=== PATIENT | female | born 2000 | race African-American/Black ===

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

== ENCOUNTER 2018-03-11 23:22 | Emergency (ER) | payer SELFPAY ==
[2018-03-12] MEDS ORDERED: DIPHENHYDRAMINE HCL 50 MG/ML VIAL IM ONE (01:18)
[2018-03-12] MEDS ORDERED: METOCLOPRAMIDE HCL INJ/PF 10 MG/2 ML SDV IM ONE (01:18)
--- NOTE | 2018-03-12 01:20 | ER Document Report ---
ED General - General Chief Complaint: Headache Stated Complaint: EXTREME HEADACHES Time Seen by Provider: 03/12/18 01:13 Notes: Patient is a 17-year-old female who presents with complaint of headache. Headache starts in the front part of her head and goes down her face. She says she has a history of migraines and always over the front part of her head. She said that this headache is slowly worsened over the last several hours and this started to involve her face and causing pain going down to her face. She denies any weakness or numbness in any of her extremities. No fevers. No vomiting. She states she took Tylenol Excedrin at home which did not resolve her headache and therefore she came to the ER. She does have a history of recurrent headaches. Last time she was seen here she was referred to a neurologist. She has not yet seen the neurologist. No recent fevers or infections. No vomiting. No other complaints at this time. TRAVEL OUTSIDE OF THE [place] IN LAST 30 DAYS: No - Related Data Allergies/Adverse Reactions: ibuprofen Allergy (Verified 12/03/17 08:02) Past Medical History - Social History Smoking Status: Unknown if Ever Smoked Frequency of alcohol use: None Drug Abuse: None Family History: None, DM Patient has suicidal ideation: No Patient has homicidal ideation: No - Past Medical History Cardiac Medical History: Denies: Hx Coronary Artery Disease, Hx Hypertension Pulmonary Medical History: Denies: Hx Asthma Endocrine Medical History: Denies: Hx Diabetes Mellitus Type 1, Hx Diabetes Mellitus Type 2 Renal/ Medical History: Denies: Hx Peritoneal Dialysis Psychiatric Medical History: Reports: Hx Attention Deficit Hyperactivity Disorder - ODD, Hx Bipolar Disorder Past Surgical History: Reports: Hx Gynecologic Surgery - -jul 2017 - Immunizations Immunizations up to date: Yes Hx Diphtheria, Pertussis, Tetanus Vaccination: No Review of Systems - Review of Systems Notes: My Normal Review Basic REVIEW OF SYSTEMS: CONSTITUTIONAL : Denies fever, chills, or sweats. Denies recent illness. EENT: Denies eye, ear, throat, or mouth pain or symptoms. Denies nasal or sinus congestion. RESPIRATORY: Denies cough, cold, or chest congestion. Denies shortness of breath, difficulty breathing, or wheezing. GASTROINTESTINAL: Denies abdominal pain. Denies nausea, vomiting, or diarrhea. Denies constipation. Last BM: MUSCULOSKELETAL: Denies neck or back pain or joint pain or swelling. SKIN: Denies rash or skin lesions.. NEUROLOGICAL: Denies altered mental status or loss of consciousness. Has a headache. Denies weakness or paralysis or loss of use of either side. Denies problems with gait or speech. Denies sensory or motor loss. ALL OTHER SYSTEMS REVIEWED AND NEGATIVE. Physical Exam - Vital signs Vitals: Temp Pulse Resp BP Pulse Ox 98.0 F 63 16 130/79 H 100 03/11/18 23:51 03/11/18 23:51 03/11/18 23:51 03/11/18 23:51 03/11/18 23:51 - Notes Notes: General Appearance: Well nourished, alert, cooperative, no acute distress, no obvious discomfort. Is comfortable appearing. Vitals: reviewed, See vital signs table. Head: no swelling or tenderness to the head Eyes: PERRL, EOMI, Conjuctiva clear Mouth: No decreasd moisture Throat: No tonsillar inflammation, No airway obstruction, No lymphadenopathy Lungs: No wheezing, No rales, No rhonci, No accessory muscle use, good air exchange bilaterally. Heart: Normal rate, Regular rythm, No murmur, no rub Abdomen: Normal BS, soft, No rigidity, No abdominal tenderness, No guarding, no rebound, no abdominal masses, no organomegaly Extremities: strength 5/5 in all extremities, good pulses in all extremities, no swelling or tenderness in the extremities, no edema. Skin: warm, dry, appropriate color, no rash Neuro: speech clear, oriented x 3, normal affect, responds appropriately to questions. Cranial nerves II through XII are intact. Distal sensation intact. Patient moves all extremities without difficulty. Normal gait. Normal Romberg. Course - Re-evaluation Re-evalutation: 03/12/18 02:42 Patient's headache is resolved. She looks well. I do not suspect subarachnoid hemorrhage the headache is gradual onset over several hours she has had similar headaches in the past. I did talked her length of follow-up with neurologist. I will refer her to neurology again. I encouraged her return to ER if she has worsening headaches, fevers, or feels unwell. Patient agrees with plan will be discharged home. Dictation of this chart was performed using voice recognition software; therefore, there may be some unintended grammatical errors. - Vital Signs Vital signs: Temp Pulse Resp BP Pulse Ox 98.0 F 63 16 130/79 H 100 03/11/18 23:51 03/11/18 23:51 03/11/18 23:51 03/11/18 23:51 03/11/18 23:51 Discharge - Discharge Clinical Impression: Headache Qualifiers: Headache type: unspecified Headache chronicity pattern: acute headache Intractability: not intractable Qualified Code(s): R51 - Headache Condition: Good Disposition: HOME, SELF-CARE Additional Instructions: Please try and follow up with the neurologist, Dr. Pitts. Please return to the ER if you have intractable headaches, fevers, vomiting, or feel unwell. I have prescribed you Reglan. You can take a tablet of the Reglan with 50mg of Benadryl when you have a headache. Please do not drive or operate machinery after taking this medication as it can make you sleepy. Prescriptions: Metoclopramide HCl [Reglan 10 mg Tablet] 1 tab PO ASDIR PRN #25 tablet PRN Reason: Forms: Return to Work Referrals: ALICE PITTS MD [EMERITUS] - 03/14/18
[2018-03-12 02:45] VITALS: BP 128/77
== END 2018-03-12 02:44 | disposition home or self-care (01) ==
LOC: ER 23:22
DX: R51 Headache (principal); Z88.6 Allergy status to analgesic agent
CPT/HCPCS: 99283; 96372; J1200; J2765

== ENCOUNTER 2018-07-15 15:49 | Emergency (ER) | payer SELFPAY ==
--- NOTE | 2018-07-15 17:04 | ER Document Report ---
ED General - General Chief Complaint: Headache Stated Complaint: HEADACHE, CHEST TIGHTNESS Time Seen by Provider: 07/15/18 16:49 Mode of Arrival: Ambulatory Information source: Patient Notes: 17-year-old non-smoker complaining of bilateral temporal constant 4/5 headache for 2 weeks. No dizziness. She is gotten headaches in the past about once every 2 weeks but they only last for 30 minutes. [id number] Aleve Tylenol Advil has not helped. She also has a symptom of fatigue feeling extra tired with some nausea. No vomiting or diarrhea. Bilateral breasts are tender and sore for 1 week. She is concerned that she might be . She has not done a home test. until 12 weeks. She does not take hormones. She had unprotected intercourse. She is also complaining of sharp chest tightness intermittently without aggravating or relieving factors last 1-2 hours for 1 week. She has a history of this last October. No runny nose sore throat or cough. No shortness of breath. No abdominal or pelvic pain. Increased vaginal discharge without an odor. No dysuria. No known drug allergies. TRAVEL OUTSIDE OF THE [place] IN LAST 30 DAYS: No - Related Data Allergies/Adverse Reactions: ibuprofen Allergy (Verified 12/03/17 08:02) Past Medical History - General Information source: Patient - Social History Smoking Status: Never Smoker Chew tobacco use (# tins/day): No Frequency of alcohol use: None Drug Abuse: None Lives with: Family Family History: None, DM Patient has suicidal ideation: No Patient has homicidal ideation: No - Medical History Medical History: Negative Psychiatric Medical History: Reports: Hx Attention Deficit Hyperactivity Disorder - ODD, Hx Bipolar Disorder Past Surgical History: Reports: Hx Gynecologic Surgery - -jul 2017 - Immunizations Immunizations up to date: Yes Hx Diphtheria, Pertussis, Tetanus Vaccination: No Review of Systems - Review of Systems Constitutional: See HPI EENT: No symptoms reported Cardiovascular: See HPI Respiratory: No symptoms reported Gastrointestinal: See HPI Genitourinary: No symptoms reported Female Genitourinary: No symptoms reported Musculoskeletal: No symptoms reported Skin: No symptoms reported Hematologic/Lymphatic: No symptoms reported Neurological/Psychological: See HPI Physical Exam - Vital signs Vitals: Temp Pulse Resp BP Pulse Ox 99.4 F 84 14 128/75 H 100 07/15/18 15:58 07/15/18 15:58 07/15/18 15:58 07/15/18 15:58 07/15/18 15:58 Interpretation: Normal - General General appearance: Appears well, Alert In distress: None - HEENT Head: Normocephalic, Atraumatic Eyes: Normal Conjunctiva: Normal Extraocular movements intact: Yes Pupils: PERRL Mucous membranes: Normal Pharynx: Normal Neck: Supple. No: Lymphadenopathy, Thyromegally - Respiratory Respiratory status: No respiratory distress Chest status: Nontender Breath sounds: Normal Chest palpation: Normal - Cardiovascular Rhythm: Regular Heart sounds: Normal auscultation Murmur: No - Abdominal Inspection: Normal Distension: No distension Bowel sounds: Normal Tenderness: Nontender Organomegaly: No organomegaly - Back Back: Normal, Nontender. No: CVA tenderness - Extremities General upper extremity: Normal inspection, Nontender, Normal color, Normal ROM , Normal temperature General lower extremity: Normal inspection, Nontender, Normal color, Normal ROM , Normal temperature, Normal weight bearing. No: Irene's sign - Neurological Neuro grossly intact: Yes Cognition: Normal Orientation: AAOx4 [place] Coma Scale Eye Opening: Spontaneous [place] Coma Scale Verbal: Oriented Anne Coma Scale Motor: Obeys Commands [place] Coma Scale Total: 15 Speech: Normal Motor strength normal: LUE, RUE, LLE, RLE Sensory: Normal - Psychological Associated symptoms: Normal affect, Normal mood - Skin Skin Temperature: Warm Skin Moisture: Dry Skin Color: Normal Skin irregularity: negative: Rash Course - Re-evaluation Re-evalutation: 07/15/18 18:33 Labs is all negative except for a specific gravity urine 1025. test is negative. Chest x-ray negative and and EKG normal sinus rhythm without ectopy, QT 380 and QTc 419. Patient states she has no headache or chest pain at this time she feels normal and no medications have been given. I will give her copies of everything so she can follow-up with the primary care doctor she states she does not have one and I will give her family practice doctor referral. - Vital Signs Vital signs: Temp Pulse Resp BP Pulse Ox 99.4 F 84 14 128/75 H 100 07/15/18 15:58 07/15/18 15:58 07/15/18 15:58 07/15/18 15:58 08/28/18 15:58 - Laboratory Result Diagrams: 07/15/18 17:11 07/15/18 17:11 Laboratory results interpreted by me: 07/15/18 07/15/18 17:11 17:11 Hgb 11.2 L Hct 34.3 L MCV 79 L MCH 25.6 L RDW 14.1 H Urine Protein 30 H Urine Urobilinogen 2.0 H Discharge - Discharge Clinical Impression: Resolved headache, Resolved chest pain Condition: Good Disposition: HOME, SELF-CARE Instructions: Acetaminophen, Chest Pain of Unclear Cause ([facility]), Headache ([facility]) Additional Instructions: Tylenol up to 4000 mg a day for headache Drink plenty of fluids Return to the emergency room for worsening of symptoms Copies of lab work EKG and chest x-ray have been given to you Referral to neurologist if the headache persists Referrals: ASIF HANDLEY NP [COMMUNITY BASED STAFF] - Follow up as needed SPENCER CAMPUZANO MD [NO LOCAL MD] - Follow up as needed
[2018-07-15 17:35] LABS: ABSOLUTE EOSINOPHILS # (AUTO) 0.1 10^3/uL (0.0-0.6); ABSOLUTE LYMPHOCYTES (AUTO) 2.7 10^3/uL (0.5-4.7); ABSOLUTE MONOCYTES (AUTO) 0.5 10^3/uL (0.1-1.4); ABSOLUTE NEUT (AUTO) 4.7 10^3/uL (1.7-8.2); BASOPHILS % (AUTO) 0.4 % (0-2); EOSINOPHILS % (AUTO) 0.7 % (0-6); HEMATOCRIT 34.3 % (36.0-47.0); HEMOGLOBIN 11.2 g/dL (12.0-15.5); LYMPHOCYTES % (AUTO) 33.7 % (13-45); MEAN CORPUSCULAR HEMOGLOBIN 25.6 pg (27.0-33.4); MEAN CORPUSCULAR HGB CONC 32.5 g/dL (32.0-36.0); MEAN CORPUSCULAR VOLUME 79 fl (80-97); MONOCYTES % (AUTO) 6.8 % (3-13); PLATELET COUNT 278 10^3/uL (150-450); RED BLOOD COUNT 4.35 10^6/uL (3.72-5.28); RED CELL DISTRIBUTION WIDTH 14.1 % (11.5-14.0); SEGMENTED NEUTROPHILS % (AUTO) 58.4 % (42-78); TOTAL CELLS COUNTED % (AUTO) 100 %
[2018-07-15 17:42] LABS: APPEARANCE,URINE CLOUDY; BILIRUBIN,URINE NEGATIVE (NEGATIVE); COLOR,URINE AMBER; GLUCOSE, URINE NEGATIVE (NEGATIVE); KETONES,URINE NEGATIVE (NEGATIVE); LEUKOCYTE ESTERASE,URINE NEGATIVE (NEGATIVE); NITRITE,URINE NEGATIVE (NEGATIVE); PROTEIN,URINE 30 mg/dL (NEGATIVE); URINE SPECIFIC GRAVITY 1.027
--- NOTE | 2018-07-15 17:45 | RADIOLOGY REPORT (SQ) ---
EXAM DESCRIPTION: CHEST 2 VIEWS COMPLETED DATE/TIME: 07/15/2018 5:32 pm REASON FOR STUDY: tightness in chest COMPARISON: 09/23/2012 EXAM PARAMETERS: NUMBER OF VIEWS: two views TECHNIQUE: Digital Frontal and Lateral radiographic views of the chest acquired. RADIATION DOSE: NA LIMITATIONS: none FINDINGS: LUNGS AND PLEURA: No opacities, masses or pneumothorax. No pleural effusion. MEDIASTINUM AND HILAR STRUCTURES: No masses or contour abnormalities. HEART AND VASCULAR STRUCTURES: Heart normal size. No evidence for failure. BONES: No acute findings. HARDWARE: None in the chest. OTHER: No other significant finding. IMPRESSION: NO ACUTE RADIOGRAPHIC FINDING IN THE CHEST. TECHNICAL DOCUMENTATION: JOB ID: [id number] [employer]- All Rights Reserved Reading location - IP/workstation name: [email or web address]
[2018-07-15 17:48] LABS: ALANINE AMINOTRANSFERASE 18 U/L (5-35); ALBUMIN 4.1 g/dL (3.7-5.6); ALKALINE PHOSPHATASE 67 U/L (50-135); ANION GAP 13 (5-19); ASPARTATE AMINO TRANSFERASE 18 U/L (5-30); BILIRUBIN,DIRECT 0.3 mg/dL (0.0-0.4); BILIRUBIN,TOTAL 0.7 mg/dL (0.2-1.3); BLOOD UREA NITROGEN 9 mg/dL (7-20); CALCIUM 9.5 mg/dL (8.4-10.2); CARBON DIOXIDE 23 mmol/L (22-30); CHLORIDE 107 mmol/L (98-107); GLUCOSE 93 mg/dL (75-110); POTASSIUM 3.9 mmol/L (3.6-5.0); SODIUM 142.7 mmol/L (137-145); TOTAL PROTEIN 7.2 g/dL (6.3-8.2)
[2018-07-15 18:55] VITALS: BP 115/71
--- NOTE | 2018-07-15 19:51 | EKG REPORT ---
SEVERITY:- OTHERWISE NORMAL ECG - SINUS ARRHYTHMIA, RATE [id number] : Confirmed by: Kevin Rodrigues MD 15-Jul-2018 19:50:55
== END 2018-07-15 18:55 | disposition home or self-care (01) ==
LOC: ER 15:49
DX: R51 Headache (principal); R07.89 Other chest pain; R53.83 Other fatigue; R11.0 Nausea; N64.59 Other signs and symptoms in breast; Z32.02 Encounter for pregnancy test, result negative; Z88.6 Allergy status to analgesic agent
CPT/HCPCS: 36415; 71046; 80053; 81001; 84702; 85025; 93005; 93010; 99284

== ENCOUNTER 2018-12-27 15:45 | Emergency (ER) | payer SELFPAY ==
--- NOTE | 2018-12-27 16:49 | ER Document Report ---
ED Cardiac - General Chief Complaint: Chest Wall Pain Stated Complaint: CHEST TIGHTNESS, BACK PAIN, HEADACHE Time Seen by Provider: 12/27/18 16:38 Mode of Arrival: Ambulatory Information source: Patient Notes: 18-year-old female presents emergency department with left-sided chest pain. It started last night. Is been constant. She describes it as a tight sensation in the left chest. No radiation. No alleviating or exacerbating factors. Patient has taken Tylenol without relief of symptoms. She denies any hypertension, hyperlipidemia, coronary artery disease, family history of coronary artery disease, smoking, diabetes. Patient also complains of left sided CVA pain. Dull aching sensation. No radiation. No alleviating or exacerbating factors. Patient denies any associated fever, chills, shortness of breath, abdominal pain, nausea, vomiting, diarrhea, constipation, dysuria, hematuria, vaginal bleeding, vaginal discharge. TRAVEL OUTSIDE OF THE [place] IN LAST 30 DAYS: No - HPI Patient complains to provider of: Chest pain Was the onset of pain: Gradual Quality of pain: Achy Severity now: Mild Severity at worst: Mild Cardiac risk factors: None Positive cardiac history: No Associated symptoms: None Exacerbated by: Denies Relieved by: Nothing Similar symptoms previously: No Recently seen / treated by doctor: No - Related Data Allergies/Adverse Reactions: No Known Allergies Allergy (Verified 12/27/18 16:42) Past Medical History - General Information source: Patient - Social History Smoking Status: Never Smoker Chew tobacco use (# tins/day): No Frequency of alcohol use: None Drug Abuse: None Family History: None, DM Patient has suicidal ideation: No Patient has homicidal ideation: No - Past Medical History Cardiac Medical History: Reports: Hx Hypertension Renal/ Medical History: Denies: Hx Peritoneal Dialysis Psychiatric Medical History: Reports: Hx Attention Deficit Hyperactivity Disorder - ODD, Hx Bipolar Disorder Past Surgical History: Reports: Hx Gynecologic Surgery - -jul 2017 - Immunizations Immunizations up to date: Yes Hx Diphtheria, Pertussis, Tetanus Vaccination: No Review of Systems - Review of Systems Constitutional: No symptoms reported EENT: No symptoms reported Cardiovascular: Chest pain Respiratory: No symptoms reported Gastrointestinal: No symptoms reported Genitourinary: No symptoms reported Female Genitourinary: No symptoms reported Musculoskeletal: Back pain Skin: No symptoms reported Hematologic/Lymphatic: No symptoms reported Neurological/Psychological: No symptoms reported -: Yes All other systems reviewed and negative Physical Exam - Vital signs Vitals: Temp Pulse Resp BP 98.6 F 92 16 129/75 H 12/27/18 16:27 12/27/18 16:27 12/27/18 16:27 12/27/18 16:27 - Notes Notes: PHYSICAL EXAMINATION: GENERAL: Well-appearing, well-nourished and in no acute distress. HEAD: Atraumatic, normocephalic. EYES: Pupils equal round and reactive to light, extraocular movements intact, conjunctiva are normal. ENT: Nares patent, oropharynx clear without exudates. Moist mucous membranes. NECK: Normal range of motion, supple without lymphadenopathy LUNGS: Breath sounds clear to auscultation bilaterally and equal. No wheezes rales or rhonchi. HEART: Regular rate and rhythm without murmurs. Chest wall tenderness to palpation. ABDOMEN: Soft, nontender, nondistended abdomen. No guarding, no rebound. Female : deferred Musculoskeletal: Normal range of motion, no pitting or edema. No cyanosis. Left lower back tenderness to palpation. NEUROLOGICAL: Cranial nerves grossly intact. Normal speech, normal gait. Normal sensory, motor exams PSYCH: Normal mood, normal affect. SKIN: Warm, Dry, normal turgor, no rashes or lesions noted. Course - Re-evaluation Re-evalutation: 12/27/18 18:10 EKG: Ventricular rate 68, IL interval 132, QRS duration 82, QTc 417, sinus rhythm. No ST segment elevation. Chest x-ray does not show an acute process. Urinalysis is unremarkable. Patient is not . I will discharge patient home with this prescription for Flexeril, prednisone and Motrin. Patient instructed to take the medication prescribed as directed, to follow-up with her primary care physician this week, and to return for worsening symptoms. 12/27/18 18:16 - Vital Signs Vital signs: Temp Pulse Resp BP Pulse Ox 98.6 F 92 16 129/75 H 12/27/18 16:27 12/27/18 16:27 12/27/18 16:27 12/27/18 16:27 - Laboratory Laboratory results interpreted by me: 12/27/18 17:10 Urine Blood LARGE H Urine Urobilinogen 4.0 H Discharge - Discharge Clinical Impression: Chest wall pain Back pain Qualifiers: Back pain location: low back pain Chronicity: acute Back pain laterality: left Sciatica presence: without sciatica Qualified Code(s): M54.5 - Low back pain Disposition: HOME, SELF-CARE Instructions: Anti-Inflammatory Medication ([facility]), Chest Wall Pain ([facility]) Prescriptions: Cyclobenzaprine HCl [Flexeril 10 mg Tablet] 10 mg PO TIDP PRN #15 tab PRN Reason: Ibuprofen [Motrin 600 Mg Tablet] 600 mg PO TID #15 tablet Prednisone [Deltasone 20 mg Tablet] 3 tab PO DAILY 5 Days #15 tablet Forms: Return to Work Referrals: BUFFY BAILEY MD [ACTIVE STAFF] - Follow up as needed
--- NOTE | 2018-12-27 17:27 | RADIOLOGY REPORT (SQ) ---
EXAM DESCRIPTION: CHEST 2 VIEWS COMPLETED DATE/TIME: 12/27/2018 5:07 pm REASON FOR STUDY: chest pain COMPARISON: 07/15/2018 TECHNIQUE: Frontal and lateral radiographic views of the chest acquired. NUMBER OF VIEWS: Two view. LIMITATIONS: None. FINDINGS: LUNGS AND PLEURA: No pneumothorax. No consolidation or pleural effusion. MEDIASTINUM AND HILAR STRUCTURES: Stable. HEART AND VASCULAR STRUCTURES: Stable. BONES: No acute findings. HARDWARE: None in the chest. OTHER: No other significant finding. IMPRESSION: NO ACUTE FINDINGS. TECHNICAL DOCUMENTATION: JOB ID: [id number] [employer]- All Rights Reserved Reading location - IP/workstation name: [email or web address]
[2018-12-27 17:29] LABS: APPEARANCE,URINE CLOUDY; BILIRUBIN,URINE NEGATIVE (NEGATIVE); COLOR,URINE YELLOW; GLUCOSE, URINE NEGATIVE (NEGATIVE); KETONES,URINE NEGATIVE (NEGATIVE); LEUKOCYTE ESTERASE,URINE NEGATIVE (NEGATIVE); NITRITE,URINE NEGATIVE (NEGATIVE); PROTEIN,URINE NEGATIVE (NEGATIVE); URINE SPECIFIC GRAVITY 1.026
[2018-12-27] MEDS ORDERED: KETOROLAC TROMETHAMINE 60 MG/2 ML SDV IM ONE (17:43)
[2018-12-27] MEDS ORDERED: PREDNISONE 20 MG TABLET PO ONE (17:43)
[2018-12-27 18:23] VITALS: BP 110/67
--- NOTE | 2018-12-27 20:05 | EKG REPORT ---
SEVERITY:- OTHERWISE NORMAL ECG - SINUS ARRHYTHMIA, RATE [id number] : Confirmed by: Ramón Hill 27-Dec-2018 20:04:22
== END 2018-12-27 18:23 | disposition home or self-care (01) ==
LOC: ER 15:45
DX: R07.89 Other chest pain (principal); M54.5 Low back pain; I10 Essential (primary) hypertension
CPT/HCPCS: 93005; 99284; 96372; 81025; 81001; 71046; 93010; J1885; J7512

== ENCOUNTER 2019-04-23 12:21 | Emergency (ER) | payer SELFPAY ==
[2019-04-23] MEDS ORDERED: DIPHENHYDRAMINE HCL 50 MG/ML VIAL IV ONE (12:32)
[2019-04-23] MEDS ORDERED: KETOROLAC TROMETHAMINE INJ/PF 30 MG/1 ML SDV IV ONE (12:32)
[2019-04-23] MEDS ORDERED: PROCHLORPERAZINE EDISYLATE INJ 10 MG/2 ML VIAL IV ONE (12:33)
--- NOTE | 2019-04-23 12:34 | ER Document Report ---
ED Medical Screen (RME) - General Chief Complaint: Headache Stated Complaint: HEADACHE Time Seen by Provider: 04/23/19 12:29 Mode of Arrival: Ambulatory Information source: Patient Notes: Patient is an otherwise healthy 18-year-old female presented to the emergency department with 1 week history of chest pain, shortness of breath and headache. Patient reports his pain is worse with any breaths. She denies any recent illness, fever cough. Patient denies use of any oral contraceptives, denies any recent travel, denies smoking and denies any history of DVT or PE. Exam: Lung sounds clear and equal bilaterally. Heart sounds S1-S2 present with no ectopy noted. I have greeted and performed a rapid initial assessment of this patient. A comprehensive ED assessment and evaluation of the patient, analysis of test results and completion of the medical decision making process will be conducted by additional ED providers. Dictation of this chart was performed using voice recognition software; therefore, there may be some unintended grammatical errors. TRAVEL OUTSIDE OF THE [place] IN LAST 30 DAYS: No - Related Data Allergies/Adverse Reactions: No Known Allergies Allergy (Verified 04/23/19 12:22) Past Medical History - Past Medical History Cardiac Medical History: Reports: Hx Hypertension Renal/ Medical History: Denies: Hx Peritoneal Dialysis Psychiatric Medical History: Reports: Hx Attention Deficit Hyperactivity Disorder - ODD, Hx Bipolar Disorder Past Surgical History: Reports: Hx Gynecologic Surgery - -jul 2017 - Immunizations Immunizations up to date: Yes Hx Diphtheria, Pertussis, Tetanus Vaccination: No Physical Exam - Vital signs Vitals: Temp Pulse Resp BP Pulse Ox 98.4 F 71 16 114/70 100 04/23/19 12:24 04/23/19 12:24 04/23/19 12:04/23/19 12:04/23/19 12:24 Course - Vital Signs Vital signs: Temp Pulse Resp BP Pulse Ox 98.4 F 71 16 114/70 100 04/23/19 12:24 04/23/19 12:24 04/23/19 12:24 04/23/19 12:24 04/23/19 12:24
[2019-04-23 12:53] LABS: ABSOLUTE LYMPHOCYTES (AUTO) 1.3 10^3/uL (0.5-4.7); ABSOLUTE MONOCYTES (AUTO) 0.3 10^3/uL (0.1-1.4); ABSOLUTE NEUT (AUTO) 6.1 10^3/uL (1.7-8.2); BASOPHILS % (AUTO) 0.3 % (0-2); EOSINOPHILS % (AUTO) 0.5 % (0-6); HEMATOCRIT 32.4 % (36.0-47.0); HEMOGLOBIN 10.2 g/dL (12.0-15.5); LYMPHOCYTES % (AUTO) 16.8 % (13-45); MEAN CORPUSCULAR HEMOGLOBIN 23.5 pg (27.0-33.4); MEAN CORPUSCULAR HGB CONC 31.6 g/dL (32.0-36.0); MEAN CORPUSCULAR VOLUME 74 fl (80-97); MONOCYTES % (AUTO) 3.4 % (3-13); PLATELET COUNT 304 10^3/uL (150-450); RED BLOOD COUNT 4.36 10^6/uL (3.72-5.28); RED CELL DISTRIBUTION WIDTH 16.2 % (11.5-14.0); TOTAL CELLS COUNTED % (AUTO) 100 %; WHITE BLOOD COUNT 7.7 10^3/uL (4.0-10.5)
[2019-04-23 13:19] LABS: ALANINE AMINOTRANSFERASE 11 U/L (9-52); ALBUMIN 4.3 g/dL (3.5-5.0); ALKALINE PHOSPHATASE 62 U/L (38-126); ANION GAP 9 (5-19); ASPARTATE AMINO TRANSFERASE 35 U/L (14-36); BILIRUBIN,DIRECT 0.3 mg/dL (0.0-0.4); BILIRUBIN,TOTAL 0.5 mg/dL (0.2-1.3); BLOOD UREA NITROGEN 10 mg/dL (7-20); CALCIUM 9.7 mg/dL (8.4-10.2); CARBON DIOXIDE 23 mmol/L (22-30); CHLORIDE 113 mmol/L (98-107); GLUCOSE 95 mg/dL (75-110); POTASSIUM 3.7 mmol/L (3.6-5.0); SODIUM 145.1 mmol/L (137-145); TOTAL PROTEIN 7.5 g/dL (6.3-8.2)
--- NOTE | 2019-04-23 13:34 | RADIOLOGY REPORT (SQ) ---
EXAM DESCRIPTION: CHEST SINGLE VIEW COMPLETED DATE/TIME: 04/23/2019 1:15 pm REASON FOR STUDY: chest pain, shortness of breath COMPARISON: 12/27/2018. EXAM PARAMETERS: NUMBER OF VIEWS: One view. TECHNIQUE: Single frontal radiographic view of the chest acquired. RADIATION DOSE: NA LIMITATIONS: None. FINDINGS: LUNGS AND PLEURA: No opacities, masses or pneumothorax. No pleural effusion. MEDIASTINUM AND HILAR STRUCTURES: No masses. Contour normal. HEART AND VASCULAR STRUCTURES: Heart normal in size. Normal vasculature. BONES: No acute findings. HARDWARE: None in the chest. OTHER: No other significant finding. IMPRESSION: NO ACUTE RADIOGRAPHIC FINDING IN THE CHEST. TECHNICAL DOCUMENTATION: JOB ID: [id number] [employer]- All Rights Reserved Reading location - IP/workstation name: [email or web address]
[2019-04-23] MEDS ORDERED: ENALAPRILAT DIHYDRATE INJ/PF 1.25 MG/1 ML SDV IV ONE (14:29)
[2019-04-23] MEDS ORDERED: DEXAMETHASONE 4 MG TABLET PO ONE (15:09)
[2019-04-23] MEDS ORDERED: IPRATROPIUM/ALBUTEROL 0.5-2.5 MG/3 ML AMPUL NEB ONE (15:09)
--- NOTE | 2019-04-23 15:12 | ER Document Report ---
ED General - General Chief Complaint: Headache Stated Complaint: HEADACHE Time Seen by Provider: 04/23/19 12:29 Mode of Arrival: Ambulatory Information source: Patient, [facility] Records Notes: 18-year-old female with hypertension tension presents with complaint of headache, chest pain, shortness of breath. Patient describes the headache as a throbbing headache located in her forehead and face. She has tried Tylenol and Motrin without relief. Headache was gradual in onset and without associated fever, trauma. She denies any visual changes, nausea, vomiting. She does admit to photophobia. Patient's chest pain also started 1 week ago and she describes it as a chest tightness. She does have associated shortness of breath that is worse when she is outside in the heat. She denies any tobacco use, drug use, family history of early cardiac disease. Patient denies any recent illness, co ugh, sore throat, nasal congestion. TRAVEL OUTSIDE OF THE [place] IN LAST 30 DAYS: No - HPI Onset: Last week Onset/Duration: Gradual, Persistent Quality of pain: Achy, Throbbing Severity: Moderate Pain Level: 1 Associated symptoms: Chest pain, Headache, Sinus pain/drainage, Shortness of breath. denies: Nonproductive cough, Productive cough, Earache, Fever, Nausea, Vomiting, Rhinnorhea, Sore throat Exacerbated by: Denies Relieved by: Denies Similar symptoms previously: Yes Recently seen / treated by doctor: No - Related Data Allergies/Adverse Reactions: No Known Allergies Allergy (Verified 04/23/19 12:22) Past Medical History - General Information source: Patient - Social History Smoking Status: Never Smoker Frequency of alcohol use: None Drug Abuse: None Lives with: Family Family History: None, DM Patient has suicidal ideation: No Patient has homicidal ideation: No - Past Medical History Cardiac Medical History: Reports: Hx Hypertension Renal/ Medical History: Denies: Hx Peritoneal Dialysis Psychiatric Medical History: Reports: Hx Attention Deficit Hyperactivity Disorder - ODD, Hx Bipolar Disorder Past Surgical History: Reports: Hx Gynecologic Surgery - -jul 2017 - Immunizations Immunizations up to date: Yes Hx Diphtheria, Pertussis, Tetanus Vaccination: No Review of Systems - Review of Systems Notes: REVIEW OF SYSTEMS: CONSTITUTIONAL : Denies fever, chills, or sweats. Denies recent illness. Denies weight loss, recent hospitalizations. EENT: Denies visual changes, eye pain. Denies sore throat, oral lesions, difficulty swallowing. CARDIOVASCULAR: + chest pain. Denies palpitations. Denies lower extremity edema. RESPIRATORY: Denies cough. Denies shortness of breath, wheezing. GASTROINTESTINAL: Denies abdominal pain or distention. Denies nausea, vomiting, or diarrhea. Denies blood in vomitus, stools, or per rectum. Denies black, tarry stools. Denies constipation. GENITOURINARY: Denies difficulty urinating, painful urination, frequency, blood in urine, or vaginal discharge. MUSCULOSKELETAL: Denies back or neck pain or stiffness. Denies joint pain or swelling. SKIN: Denies rash, lesions or sores. HEMATOLOGIC : Denies easy bruising or bleeding. LYMPHATIC: Denies swollen glands. NEUROLOGICAL: Denies confusion or altered mental status. Denies loss of consciousness. Denies dizziness or lightheadedness. Denies weakness or paralysis. Denies problems difficulty with ambulation, slurred speech. Denies sensory loss, numbness, or tingling. Denies seizures. PSYCHIATRIC: Denies anxiety or stress. Denies depression, suicidal ideation, or homicidal ideation. Denies visual or auditory hallucinations. Physical Exam - Vital signs Vitals: Temp Pulse Resp BP Pulse Ox 98.4 F 71 16 114/70 100 04/23/19 12:24 04/23/19 12:24 04/23/19 12:24 04/23/19 12:24 04/23/19 12:24 - Notes Notes: PHYSICAL EXAMINATION: GENERAL: Well-appearing, well-nourished and in no acute distress. HEAD: Atraumatic, normocephalic. EYES: Pupils equal round and reactive to light, extraocular movements intact, conjunctiva are normal. ENT: Nares patent, oropharynx clear without exudates. Moist mucous membranes. NECK: Normal range of motion, supple without lymphadenopathy LUNGS: Breath sounds clear to auscultation bilaterally and equal. No wheezes rales or rhonchi. HEART: Regular rate and rhythm without murmurs ABDOMEN: Soft, nontender, nondistended abdomen. No guarding, no rebound. No masses appreciated. Female : deferred Musculoskeletal: Normal range of motion, no pitting or edema. No cyanosis. NEUROLOGICAL: Cranial nerves grossly intact. Normal speech, normal gait. Normal sensory, motor exams PSYCH: Normal mood, normal affect. SKIN: Warm, Dry, normal turgor, no rashes or lesions noted. Course - Re-evaluation Re-evalutation: 04/23/19 15:45 Laboratory 04/23/19 04/23/19 04/23/19 12:41 12:41 12:41 WBC 7.7 RBC 4.36 Hgb 10.2 L Hct 32.4 L MCV 74 L MCH 23.5 L MCHC 31.6 L RDW 16.2 H Plt Count 304 Seg Neutrophils % 79.0 H Lymphocytes % 16.8 Monocytes % 3.4 Eosinophils % 0.5 Basophils % 0.3 Absolute Neutrophils 6.1 Absolute Lymphocytes 1.3 Absolute Monocytes 0.3 Absolute Eosinophils 0.0 Absolute Basophils 0.0 Sodium 145.1 H Potassium 3.7 Chloride 113 H Carbon Dioxide 23 Anion Gap 9 BUN 10 Creatinine 0.61 Est GFR ( Amer) > 60 Est GFR (Non-Af Amer) > 60 Glucose 95 Calcium 9.7 Total Bilirubin 0.5 Direct Bilirubin 0.3 Neonat Total Bilirubin Not Reportable Neonat Direct Bilirubin Not Reportable Neonat Indirect Bili Not Reportable AST 35 ALT 11 Alkaline Phosphatase 62 Troponin I < 0.012 Total Protein 7.5 Albumin 4.3 Chest X-Ray 04/23/19 12:32 IMPRESSION: NO ACUTE RADIOGRAPHIC FINDING IN THE CHEST. Temp Pulse Resp BP Pulse Ox 98.4 F 71 16 114/70 100 04/23/19 12:24 04/23/19 12:24 04/23/19 12:24 04/23/19 12:24 04/23/19 12:24 04/23/19 15:47 18-year-old female with hypertension tension presents with complaint of headache, chest pain, shortness of breath. Patient describes the headache as a throbbing headache located in her forehead and face. She has tried Tylenol and Motrin without relief. Headache was gradual in onset and without associated fever, trauma. She denies any visual changes, nausea, vomiting. She does admit to photophobia. Patient's chest pain also started 1 week ago and she describes it as a chest tightness. She does have associated shortness of breath that is worse when she is outside in the heat. Vital signs reviewed and within normal limits. Patient does not appear toxic or dehydrated. She is in no acute distress. EKG was obtained which showed the patient to be in normal sinus rhythm at a rate of 60. Chest x-ray showed no acute process. CBC, CMP, cardiac enzymes are unremarkable. Patient does report improvement of her headache after receiving Toradol, IV fluids, Decadron. Patient also received a breathing treatment. Headache is sinus related. Patient will be discharged home with an albuterol MDI and 04/23/19 15:51 HEART Score: History-0 ECG-0 Age-0 Risk Factors-1 Troponin-0 Total: 1 If HEART score is = 3 AND both troponin measurements are normal, the 30 day risk of a major adverse cardiac event (all-cause mortality, myocardial infarction or need for coronary revascularization) is < 1% (Sensitivity 100%, NPV 100%). Chest pain in a patient without evidence of cardiac or other serious etiology on workup today. I discussed with patient that, based on their age, risk factors and emergency department testing today, the likelihood that their symptoms are related to a heart attack is very low (estimated risk of heart attack or over the next 30 days of less than 1%). The patient demonstrates decision making capacity and has verbalized an understanding of these risks to me. Based on this, the patient has chosen to follow-up as an outpatient. Usual chest pain return precautions reviewed. The patient states understanding and agreement with this plan. - Vital Signs Vital signs: Temp Pulse Resp BP Pulse Ox 98.0 F 68 16 110/68 100 04/23/19 16:30 04/23/19 16:30 04/23/19 16:30 04/23/19 16:30 04/23/19 16:30 - Laboratory Result Diagrams: 04/23/19 12:41 04/23/19 12:41 Laboratory results interpreted by me: 04/23/19 04/23/19 12:41 12:41 Hgb 10.2 L Hct 32.4 L MCV 74 L MCH 23.5 L MCHC 31.6 L RDW 16.2 H Seg Neutrophils % 79.0 H Sodium 145.1 H Chloride 113 H - Diagnostic Test Radiology reviewed: Image reviewed, Reports reviewed - EKG Interpretation by Me EKG shows normal: Sinus rhythm Rate: Normal Rhythm: NSR Discharge - Discharge Clinical Impression: Chest tightness, Sinus headache Headache Qualifiers: Headache type: unspecified Headache chronicity pattern: unspecified pattern Intractability: not intractable Qualified Code(s): R51 - Headache Condition: Good Disposition: HOME, SELF-CARE Instructions: Dyspnea, Nonspecific ([facility]), Headache ([facility]) Additional Instructions: You were seen today for chest pain. The exact cause of your pain is unclear. However, based on your cardiac enzyme testing, chest x-ray, and EKG it does not appear that it is from an immediately life-threatening cause at this time. Although your testing here is normal is critical that you follow-up with your primary care physician for continued evaluation of this chest pain and possible stress testing. I recommended you see your physician within the next 24-48 hours to be evaluated for consideration of a stress test. Please return to emergency department immediately if you have worsening of your chest pain, shortness of breath, vomiting, become unable to exert yourself due to pain or difficulty breathing, you pass out, or have any pain that radiates into your arms, jaw, or back. Please also return if you have any additional symptoms that are concerning to you. Prescriptions: Guaifenesin/P-Ephed HCl [Pseudo Max Tablet] 1 each PO Q12H PRN #[id number] PRN Reason: For Headache Forms: Return to Work
[2019-04-23] MEDS ORDERED: ALBUTEROL SULFATE HFA (90 MCG/PUFF) 8 GM MDI (1 MDI/ER DISP) IH PRN (15:43)
[2019-04-23 16:31] VITALS: BP 110/68
--- NOTE | 2019-04-23 16:53 | EKG REPORT ---
SEVERITY:- OTHERWISE NORMAL ECG - SINUS RHYTHM ATRIAL PREMATURE COMPLEX : Confirmed by: Kevin Rodrigues MD 23-Apr-2019 16:51:59
== END 2019-04-23 16:35 | disposition home or self-care (01) ==
LOC: ER 12:21
DX: R07.9 Chest pain, unspecified (principal); R51 Headache; J34.9 Unspecified disorder of nose and nasal sinuses; R06.02 Shortness of breath; H53.149 Visual discomfort, unspecified; I10 Essential (primary) hypertension
CPT/HCPCS: 93005; 94640; 99284; 96374; 96375; 36415; 85025; 80053; 84484; 71045; 93010; J1200; J1885; J0780; J7620

== ENCOUNTER 2019-09-08 14:47 | Emergency (ER) | payer SELFPAY ==
[2019-09-08] MEDS ORDERED: KETOROLAC TROMETHAMINE 60 MG/2 ML SDV IM ONE (15:25)
--- NOTE | 2019-09-08 15:27 | ER Document Report ---
ED Medical Screen (RME) - General Chief Complaint: Chest Pain Stated Complaint: CHEST PAIN, SHORT OF BREATH Time Seen by Provider: 09/08/19 15:19 Notes: Patient is a 19-year-old female who presents to the emergency department with a chief complaint of shortness of breath, chest pain, and back pain. About 3 weeks ago she started to have left-sided back pain and now the pain has radiated to her chest and caused her shortness of breath. Patient states that she has a hard time sitting straight up due to the pain. She has been taking ibuprofen and Tylenol for pain relief, but has had little relief. Exam: S1, S2. Clear breath sounds throughout all lung [place]. I have greeted and performed a rapid initial assessment of this patient. A comprehensive ED assessment and evaluation of the patient, analysis of test results and completion of medical decision making process will be conducted by an additional ED providers. TRAVEL OUTSIDE OF THE [place] IN LAST 30 DAYS: No - Related Data Allergies/Adverse Reactions: No Known Allergies Allergy (Verified 09/08/19 15:10) Past Medical History - Social History Chew tobacco use (# tins/day): No Frequency of alcohol use: Occasional Drug Abuse: None - Past Medical History Cardiac Medical History: Reports: Hx Hypertension Renal/ Medical History: Denies: Hx Peritoneal Dialysis Psychiatric Medical History: Reports: Hx Attention Deficit Hyperactivity Disorder - ODD, Hx Bipolar Disorder Past Surgical History: Reports: Hx Gynecologic Surgery - -jul 2017 - Immunizations Immunizations up to date: Yes Hx Diphtheria, Pertussis, Tetanus Vaccination: No Physical Exam - Vital signs Vitals: Temp Pulse Resp BP 98.2 F 88 20 148/92 H 09/08/19 15:05 09/08/19 15:05 09/08/19 15:05 09/08/19 15:05 Course - Vital Signs Vital signs: Temp Pulse Resp BP Pulse Ox 98.2 F 88 20 148/92 H 09/08/19 15:05 09/08/19 15:05 09/08/19 15:05 09/08/19 15:05
[2019-09-08 15:48] LABS: ABSOLUTE BASOPHILS # (AUTO) 0.1 10^3/uL (0.0-0.2); ABSOLUTE LYMPHOCYTES (AUTO) 2.2 10^3/uL (0.5-4.7); ABSOLUTE MONOCYTES (AUTO) 0.4 10^3/uL (0.1-1.4); ABSOLUTE NEUT (AUTO) 2.7 10^3/uL (1.7-8.2); BASOPHILS % (AUTO) 1.3 % (0-2); EOSINOPHILS % (AUTO) 0.6 % (0-6); HEMATOCRIT 32.4 % (36.0-47.0); HEMOGLOBIN 10.2 g/dL (12.0-15.5); LYMPHOCYTES % (AUTO) 41.8 % (13-45); MEAN CORPUSCULAR HEMOGLOBIN 23.8 pg (27.0-33.4); MEAN CORPUSCULAR HGB CONC 31.5 g/dL (32.0-36.0); MEAN CORPUSCULAR VOLUME 76 fl (80-97); MONOCYTES % (AUTO) 6.7 % (3-13); PLATELET COUNT 297 10^3/uL (150-450); RED BLOOD COUNT 4.28 10^6/uL (3.72-5.28); RED CELL DISTRIBUTION WIDTH 17.1 % (11.5-14.0); SEGMENTED NEUTROPHILS % (AUTO) 49.6 % (42-78); TOTAL CELLS COUNTED % (AUTO) 100 %; WHITE BLOOD COUNT 5.4 10^3/uL (4.0-10.5)
--- NOTE | 2019-09-08 15:54 | RADIOLOGY REPORT (SQ) ---
EXAM DESCRIPTION: CHEST 2 VIEWS COMPLETED DATE/TIME: 09/08/2019 3:44 pm REASON FOR STUDY: shortness of breath COMPARISON: 04/23/2019 EXAM PARAMETERS: NUMBER OF VIEWS: two views TECHNIQUE: Digital Frontal and Lateral radiographic views of the chest acquired. RADIATION DOSE: NA LIMITATIONS: none FINDINGS: LUNGS AND PLEURA: No opacities, masses or pneumothorax. No pleural effusion. MEDIASTINUM AND HILAR STRUCTURES: No masses or contour abnormalities. HEART AND VASCULAR STRUCTURES: Heart normal size. No evidence for failure. BONES: No acute findings. HARDWARE: None in the chest. OTHER: No other significant finding. IMPRESSION: No acute abnormality of the lungs. No focal airspace opacity. TECHNICAL DOCUMENTATION: JOB ID: [id number] [employer]- All Rights Reserved Reading location - IP/workstation name: [email or web address]
[2019-09-08 16:08] LABS: ALBUMIN 4.1 g/dL (3.5-5.0); ALKALINE PHOSPHATASE 60 U/L (38-126); ANION GAP 11 (5-19); ASPARTATE AMINO TRANSFERASE 18 U/L (14-36); BILIRUBIN,DIRECT 0.1 mg/dL (0.0-0.4); BILIRUBIN,TOTAL 0.6 mg/dL (0.2-1.3); BLOOD UREA NITROGEN 9 mg/dL (7-20); CALCIUM 9.4 mg/dL (8.4-10.2); CARBON DIOXIDE 21 mmol/L (22-30); CHLORIDE 111 mmol/L (98-107); CREATINE KINASE 73 U/L (30-135); GLUCOSE 90 mg/dL (75-110); POTASSIUM 4.1 mmol/L (3.6-5.0); TOTAL PROTEIN 7.1 g/dL (6.3-8.2)
--- NOTE | 2019-09-08 16:42 | ER Document Report ---
ED Cardiac - General Chief Complaint: Chest Pain Stated Complaint: CHEST PAIN, SHORT OF BREATH Time Seen by Provider: 09/08/19 15:19 Primary Care Provider: [facility] [Provider Group] - Follow up as needed [facility] [Provider Group] - Follow up as needed Mode of Arrival: Ambulatory Information source: Patient Notes: Patient presents complaining of chest pain back pain and shortness of breath. Patient states chest pain started yesterday around 11:00 last night. Patient denies any urinary symptoms nausea vomiting or diarrhea. Patient denies any cough or cold symptoms. Patient denies any recent immobilization, bedrest travel or recent surgery. TRAVEL OUTSIDE OF THE [place] IN LAST 30 DAYS: No - HPI Patient complains to provider of: Chest pain Chest pain location: Substernal Quality of pain: Sharp, Tightness Pain level currently: 3 Chest pain precipitating factors: At Rest Cardiac risk factors: Hypertension. denies: Diabetes, Smoker, Dyslipidemia, Hx NH Associated symptoms: Back pain, Shortness of breath. denies: Abdominal pain, Diaphoresis, Headache, Nausea/vomiting Exacerbated by: Denies Relieved by: Nothing Similar symptoms previously: No Recently seen / treated by doctor: No - Related Data Allergies/Adverse Reactions: No Known Allergies Allergy (Verified 09/08/19 15:10) Past Medical History - General Information source: Patient - Social History Smoking Status: Never Smoker Chew tobacco use (# tins/day): No Frequency of alcohol use: Occasional Drug Abuse: None Occupation: None Family History: None, DM Patient has suicidal ideation: No Patient has homicidal ideation: No - Past Medical History Cardiac Medical History: Reports: Hx Hypertension - Not currently on any medications, patient states she was diagnosed years ag Pulmonary Medical History: Denies: Hx Asthma Renal/ Medical History: Denies: Hx Peritoneal Dialysis Psychiatric Medical History: Reports: Hx Attention Deficit Hyperactivity Disorder - ODD, Hx Bipolar Disorder Past Surgical History: Reports: Hx Gynecologic Surgery - -jul 2017 - Immunizations Immunizations up to date: Yes Hx Diphtheria, Pertussis, Tetanus Vaccination: No Review of Systems - Review of Systems Constitutional: No symptoms reported. denies: Fever, Recent illness EENT: No symptoms reported Cardiovascular: Chest pain. denies: Dizziness Respiratory: Short of breath. denies: Cough Gastrointestinal: No symptoms reported. denies: Abdominal pain, Diarrhea, Nausea, Vomiting Genitourinary: Flank pain - Left. denies: Dysuria Female Genitourinary: No symptoms reported Musculoskeletal: Back pain Skin: No symptoms reported Hematologic/Lymphatic: No symptoms reported Neurological/Psychological: No symptoms reported Physical Exam - Vital signs Vitals: Temp Pulse Resp BP 98.2 F 88 20 148/92 H 09/08/19 15:05 09/08/19 15:05 09/08/19 15:05 09/08/19 15:05 - General General appearance: Appears well, Alert In distress: None - HEENT Head: Normocephalic, Atraumatic Eyes: Normal Conjunctiva: Normal Nasal: Normal Mouth/Lips: Normal Neck: Normal, Supple. No: Lymphadenopathy - Respiratory Respiratory status: No respiratory distress Chest status: Tender. No: Pain with cough, Pain with deep breathing Breath sounds: Normal Chest palpation: Normal. No: Tender - Cardiovascular Rhythm: Regular Heart sounds: S1 appreciated, S2 appreciated Murmur: No - Abdominal Inspection: Normal Distension: No distension Bowel sounds: Normal Tenderness: Nontender Organomegaly: No organomegaly - Back Back: CVA tenderness - left - Extremities General upper extremity: Normal inspection, Normal ROM General lower extremity: Normal inspection, Normal ROM. No: Edema - Neurological Neuro grossly intact: Yes Cognition: Normal Anne Coma Scale Eye Opening: Spontaneous [place] Coma Scale Verbal: Oriented Anne Coma Scale Motor: Obeys Commands [place] Coma Scale Total: 15 - Psychological Associated symptoms: Normal affect, Normal mood - Skin Skin Temperature: Warm Skin Moisture: Dry Skin Color: Normal Course - Re-evaluation Re-evalutation: 09/08/19 19:03 Presentation of chest pain in an otherwise well appearing patient. Low clinical suspicion for ACS given clinical history, exam, EKG without ST elevations or depressions, and negative initial troponin. HEART score less than or equal to 3. PE also seems unlikely given clinical history, absence of tachycardia or dyspnea. CTA negative for PE or dissection. CXR without evidence of pneumothorax or pneumonia. No widened mediastinum. Chest pain in a patient without evidence of cardiac or other serious etiology on workup today. I discussed with patient that, based on their age, risk factors and emergency department testing today, the likelihood that their symptoms are related to a heart attack is very low. The patient demonstrates decision making capacity and has verbalized an understanding of these risks to me. Based on this, the patient has chosen to follow-up as an outpatient. Usual chest pain return precautions reviewed. The patient states understanding and agreement with this plan. Patient does have incidental UTI with left flank pain. No concern for obstructive uropathy at this time, patient with normal renal function and no leukocytosis.. Will culture urine and treat symptomatically. - Vital Signs Vital signs: Temp Pulse Resp BP Pulse Ox 98.2 F 75 16 119/68 100 09/08/19 19:22 09/08/19 19:22 09/08/19 19:22 09/08/19 19:22 09/08/19 19:22 - Laboratory Result Diagrams: 09/08/19 15:32 09/08/19 15:32 Laboratory results interpreted by me: 09/08/19 09/08/19 09/08/19 15:32 15:32 15:32 Hgb 10.2 L Hct 32.4 L MCV 76 L MCH 23.8 L MCHC 31.5 L RDW 17.1 H D-Dimer 0.88 H Chloride 111 H Carbon Dioxide 21 L Urine Protein Urine Ketones Urine Nitrite (Reflex) Leukocyte Esterase Rfl 09/08/19 17:00 Hgb Hct MCV MCH MCHC RDW D-Dimer Chloride Carbon Dioxide Urine Protein 30 H Urine Ketones TRACE H Urine Nitrite (Reflex) POSITIVE H Leukocyte Esterase Rfl TRACE H 09/08/19 19:05 Labs- Entire Visit 09/08/19 09/08/19 09/08/19 15:32 15:32 15:32 WBC 5.4 RBC 4.28 Hgb 10.2 L Hct 32.4 L MCV 76 L MCH 23.8 L MCHC 31.5 L RDW 17.1 H Plt Count 297 Lymph % (Auto) 41.8 [place] % (Auto) 6.7 Eos % (Auto) 0.6 Baso % (Auto) 1.3 Absolute Neuts (auto) 2.7 Absolute Lymphs (auto) 2.2 Absolute Monos (auto) 0.4 Absolute Eos (auto) 0.0 Absolute Basos (auto) 0.1 Seg Neutrophils % 49.6 D-Dimer Sodium 142.9 Potassium 4.1 Chloride 111 H Carbon Dioxide 21 L Anion Gap 11 BUN 9 Creatinine 0.60 Est GFR ( Amer) > 60 Est GFR (MDRD) Non-Af > 60 Glucose 90 Calcium 9.4 Total Bilirubin 0.6 Direct Bilirubin 0.1 Neonat Total Bilirubin Not Reportable Neonat Direct Bilirubin Not Reportable Neonat Indirect Bili Not Reportable AST 18 ALT 8 Alkaline Phosphatase 60 Creatine Kinase 73 CK-MB (CK-2) < 0.22 Troponin I Total Protein 7.1 Albumin 4.1 Serum HCG, Qual Urine Color Urine Appearance Urine pH Ur Specific [place] Urine Protein Urine Glucose (UA) Urine Ketones Urine Blood Urine Nitrite (Reflex) Urine Bilirubin Urine Urobilinogen Leukocyte Esterase Rfl Urine RBC (Auto) Urine Bacteria (Auto) Urine WBC (Reflex) Squamous Epi Cells Auto Urine Mucus (Auto) Urine Ascorbic Acid 09/08/19 09/08/19 09/08/19 15:32 15:32 15:32 WBC RBC Hgb Hct MCV MCH MCHC RDW Plt Count Lymph % (Auto) [place] % (Auto) Eos % (Auto) Baso % (Auto) Absolute Neuts (auto) Absolute Lymphs (auto) Absolute Monos (auto) Absolute Eos (auto) Absolute Basos (auto) Seg Neutrophils % D-Dimer 0.88 H Sodium Potassium Chloride Carbon Dioxide Anion Gap BUN Creatinine Est GFR ( Amer) Est GFR (MDRD) Non-Af Glucose Calcium Total Bilirubin Direct Bilirubin Neonat Total Bilirubin Neonat Direct Bilirubin Neonat Indirect Bili AST ALT Alkaline Phosphatase Creatine Kinase CK-MB (CK-2) Troponin I < 0.012 Total Protein Albumin Serum HCG, Qual NEGATIVE Urine Color Urine Appearance Urine pH Ur Specific [place] Urine Protein Urine Glucose (UA) Urine Ketones Urine Blood Urine Nitrite (Reflex) Urine Bilirubin Urine Urobilinogen Leukocyte Esterase Rfl Urine RBC (Auto) Urine Bacteria (Auto) Urine WBC (Reflex) Squamous Epi Cells Auto Urine Mucus (Auto) Urine Ascorbic Acid 09/08/19 17:00 WBC RBC Hgb Hct MCV MCH MCHC RDW Plt Count Lymph % (Auto) [place] % (Auto) Eos % (Auto) Baso % (Auto) Absolute Neuts (auto) Absolute Lymphs (auto) Absolute Monos (auto) Absolute Eos (auto) Absolute Basos (auto) Seg Neutrophils % D-Dimer Sodium Potassium Chloride Carbon Dioxide Anion Gap BUN Creatinine Est GFR ( Amer) Est GFR (MDRD) Non-Af Glucose Calcium Total Bilirubin Direct Bilirubin Neonat Total Bilirubin Neonat Direct Bilirubin Neonat Indirect Bili AST ALT Alkaline Phosphatase Creatine Kinase CK-MB (CK-2) Troponin I Total Protein Albumin Serum HCG, Qual Urine Color YELLOW Urine Appearance CLOUDY Urine pH 5.0 Ur Specific [place] 1.025 Urine Protein 30 H Urine Glucose (UA) NEGATIVE Urine Ketones TRACE H Urine Blood NEGATIVE Urine Nitrite (Reflex) POSITIVE H Urine Bilirubin NEGATIVE Urine Urobilinogen NEGATIVE Leukocyte Esterase Rfl TRACE H Urine RBC (Auto) 1 Urine Bacteria (Auto) 1+ Urine WBC (Reflex) 7 Squamous Epi Cells Auto 8 Urine Mucus (Auto) MANY Urine Ascorbic Acid NEGATIVE - Diagnostic Test Radiology reviewed: Reports reviewed - EKG Interpretation by Me EKG shows normal: Sinus rhythm Rhythm: Arrthymia When compared to previous EKG there are: No significant change Additional EKG results interpreted by me: 09/08/19 16:[address] elevation, no T wave inversion, QTC 409 Discharge - Discharge Clinical Impression: Chest pain Qualifiers: Chest pain type: unspecified Qualified Code(s): R07.9 - Chest pain, unspecified UTI (urinary tract infection) Qualifiers: Urinary tract infection type: site unspecified Hematuria presence: without hematuria Qualified Code(s): N39.0 - Urinary tract infection, site not specified Condition: Stable Disposition: HOME, SELF-CARE Instructions: Cephalexin ([facility]), Chest Pain of Unclear Cause ([facility]), Urinary Tract Infection ([facility]) Additional Instructions: Return immediately for any new or worsening symptoms Followup with your primary care provider, call tomorrow to make a followup appointment You were seen today for chest pain. The exact cause of your pain is unclear. However, based on your cardiac enzyme testing, chest x-ray, and EKG it does not appear that it is from an immediately life-threatening cause at this time. Although your testing here is normal is critical that you follow-up with your primary care physician for continued evaluation of this chest pain and possible stress testing. I recommended you see your physician within the next 24-48 hours to be evaluated for consideration of a stress test. Please return to emergency department immediately if you have worsening of your chest pain, shortness of breath, vomiting, become unable to exert yourself due to pain or difficulty breathing, you pass out, or have any pain that radiates into your arms, jaw, or back. Please also return if you have any additional symptoms that are concerning to you. Your urine showed signs of infection. A urine culture will be performed. We will call if you need any different treatment based on the results of the culture. Please take all of your antibiotics as prescribed. Return for any fever, worsening back pain, vomiting, or any lack of improvement of symptoms. Prescriptions: Cephalexin Monohydrate [Keflex 500 mg Capsule] 500 mg PO BID 7 Days capsule Naproxen [Naprosyn 250 Nmg Tablet] 1 tab PO BID #14 tablet Referrals: [facility] [Provider Group] - Follow up as needed [facility] [Provider Group] - Follow up as needed
[2019-09-08 17:50] LABS: APPEARANCE,URINE CLOUDY; BILIRUBIN,URINE NEGATIVE (NEGATIVE); COLOR,URINE YELLOW; GLUCOSE, URINE NEGATIVE (NEGATIVE); KETONES,URINE TRACE mg/dL (NEGATIVE); PROTEIN,URINE 30 mg/dL (NEGATIVE); URINE SPECIFIC GRAVITY 1.025; UROBILINOGEN,URINE NEGATIVE mg/dL (<2.0)
[2019-09-08] MEDS ORDERED: NORMAL SALINE 1000 ML 1,000 ML IV ONE (18:12)
[2019-09-08] MEDS ORDERED: CEFTRIAXONE 1 GM/D5W RTU 1 GM/50 ML RTUPB IV ONE (18:12)
--- NOTE | 2019-09-08 18:47 | RADIOLOGY REPORT (SQ) ---
EXAM DESCRIPTION: CTA CHEST COMPLETED DATE/TIME: 09/08/2019 6:25 pm REASON FOR STUDY: cp, sob, elevated dimer COMPARISON: 09/24/2012 TECHNIQUE: CT scan of the chest performed using helical scanning technique with dynamic intravenous contrast injection. Images reviewed with lung, soft tissue and bone windows. Reconstructed coronal and sagittal MPR images reviewed. Additional 3 dimensional post-processing performed to develop Maximal Intensity Projection images (LA P). All images stored on PACS. All CT scanners at this facility use dose modulation, iterative reconstruction, and/or weight based d osing when appropriate to reduce radiation dose to as low as reasonably achievable (ALARA). [facility]: Dose Right [facility]: CareDose [facility]: Dose Right [facility]: Teradose 4D [facility]: Glassbeam CONTRAST TYPE AND DOSE: 59 mL Omnipaque 350- low osmolar. Contrast bolus adequate for pulmonary arteries and aorta. RENAL FUNCTION: BUN 9 creatinine 0.6 RADIATION DOSE: . LIMITATIONS: None. FINDINGS: LUNGS AND PLEURA: No masses, infiltrates, or pneumothorax. No pleural effusions or pleura l calcifications. AORTA AND GREAT VESSELS: No aneurysm. Contrast bolus not optimized for the aorta. HEART: No pericardial effusion. No significant coronary artery calcifications. PULMONARY ARTERIES: No emboli visualized in the main pulmonary arteries or the segmental branches. HILAR AND MEDIASTINAL STRUCTURES: No identified masses or abnormal nodes. HARDWARE: None in the chest. UPPER ABDOMEN: No significant findings. Limited exam. THYROID AND OTHER SOFT TISSUES: No masses. No adenopathy. BONES: No acute or significant finding. 3D MIPS: Confirm above findings. OTHER: No other significant finding. IMPRESSION: NORMAL CTA OF THE CHEST. NO PULMONARY EMBOLI. COMMENT: Quality ID # [id number]: Final reports with documentation of one or more dose reduction techniques (e.g., Automated exposure control, adjustment of the mA and/or kV according to patient size, use of iterative reconstruction technique) TECHNICAL DOCUMENTATION: JOB ID: [id number] [employer]- All Rights Reserved Reading location - IP/workstation name: [email or web address]
[2019-09-08 19:28] VITALS: BP 119/68
--- NOTE | 2019-09-08 23:49 | EKG REPORT ---
SEVERITY:- OTHERWISE NORMAL ECG - SINUS ARRHYTHMIA, RATE [id number] : Confirmed by: Janay Chapa MD 08-Sep-2019 23:48:54
== END 2019-09-08 19:22 | disposition home or self-care (01) ==
LOC: ER 14:47
DX: N39.0 Urinary tract infection, site not specified (principal); R07.9 Chest pain, unspecified; R06.02 Shortness of breath; M54.9 Dorsalgia, unspecified; I10 Essential (primary) hypertension
CPT/HCPCS: 93005; 36415; 82553; 82550; 84703; 85025; 80053; 81001; 84484; 85379; 71046; 71275; 93010; J1885; J7030; J0696; 87086; 87088; 96365; 96372; 99285

== ENCOUNTER 2019-10-05 14:34 | Emergency (ER) | payer SELFPAY ==
[2019-10-05 14:59] VITALS: BP 118/62
[2019-10-05] MEDS ORDERED: ACETAMINOPHEN 325 MG TABLET PO ONE (15:16)
--- NOTE | 2019-10-05 15:17 | ER Document Report ---
ED Medical Screen (RME) - General Chief Complaint: Back Pain Stated Complaint: FLANK PAIN Time Seen by Provider: 10/05/19 15:10 Notes: Patient is a 19-year-old female who presents emergency department with a chief complaint of left flank pain. Patient states that no matter what position she gets in, she states that she cannot get comfortable and continues to have pain. She has been taking ibuprofen and Tylenol at home with little relief of her pain. Patient was recently diagnosed with a urinary tract infection. Patient states that her urine had cleared up, but continues to have pain. Exam: No CVA tenderness noted. Labs will be redrawn. I have greeted and performed a rapid initial assessment of this patient. A comprehensive ED assessment and evaluation of the patient, analysis of test results and completion of medical decision making process will be conducted by an additional ED providers. TRAVEL OUTSIDE OF THE [place] IN LAST 30 DAYS: No - Related Data Allergies/Adverse Reactions: No Known Allergies Allergy (Verified 09/08/19 15:10) Past Medical History - Social History Frequency of alcohol use: None Drug Abuse: None - Past Medical History Cardiac Medical History: Reports: Hx Hypertension - Not currently on any medica tions, patient states she was diagnosed years ag Pulmonary Medical History: Denies: Hx Asthma Renal/ Medical History: Denies: Hx Peritoneal Dialysis Psychiatric Medical History: Reports: Hx Attention Deficit Hyperactivity Disorder - ODD, Hx Bipolar Disorder Past Surgical History: Reports: Hx Gynecologic Surgery - -jul 2017 - Immunizations Immunizations up to date: Yes Hx Diphtheria, Pertussis, Tetanus Vaccination: No Physical Exam - Vital signs Vitals: Temp Pulse BP Pulse Ox 98.4 F 88 118/62 100 10/05/19 14:59 10/05/19 14:59 10/05/19 14:59 10/05/19 14:59 Course - Vital Signs Vital signs: Temp Pulse Resp BP Pulse Ox 98.4 F 88 118/62 100 10/05/19 14:59 10/05/19 14:59 10/05/19 14:59 10/05/19 14:59
[2019-10-05 16:08] LABS: ABSOLUTE LYMPHOCYTES (AUTO) 2.5 10^3/uL (0.5-4.7); ABSOLUTE MONOCYTES (AUTO) 0.5 10^3/uL (0.1-1.4); ABSOLUTE NEUT (AUTO) 4.5 10^3/uL (1.7-8.2); BASOPHILS % (AUTO) 0.6 % (0-2); EOSINOPHILS % (AUTO) 0.5 % (0-6); HEMATOCRIT 34.1 % (36.0-47.0); LYMPHOCYTES % (AUTO) 33.4 % (13-45); MEAN CORPUSCULAR HEMOGLOBIN 24.6 pg (27.0-33.4); MEAN CORPUSCULAR HGB CONC 32.2 g/dL (32.0-36.0); MEAN CORPUSCULAR VOLUME 76 fl (80-97); MONOCYTES % (AUTO) 6.3 % (3-13); PLATELET COUNT 275 10^3/uL (150-450); RED BLOOD COUNT 4.47 10^6/uL (3.72-5.28); RED CELL DISTRIBUTION WIDTH 17.6 % (11.5-14.0); SEGMENTED NEUTROPHILS % (AUTO) 59.2 % (42-78); TOTAL CELLS COUNTED % (AUTO) 100 %; WHITE BLOOD COUNT 7.6 10^3/uL (4.0-10.5)
[2019-10-05 16:13] LABS: APPEARANCE,URINE CLOUDY; BILIRUBIN,URINE NEGATIVE (NEGATIVE); COLOR,URINE YELLOW; GLUCOSE, URINE NEGATIVE (NEGATIVE); KETONES,URINE NEGATIVE (NEGATIVE); PROTEIN,URINE 30 mg/dL (NEGATIVE); URINE SPECIFIC GRAVITY 1.029; UROBILINOGEN,URINE NEGATIVE mg/dL (<2.0)
[2019-10-05 16:30] LABS: ALBUMIN 4.3 g/dL (3.5-5.0); ALKALINE PHOSPHATASE 62 U/L (38-126); ANION GAP 12 (5-19); ASPARTATE AMINO TRANSFERASE 19 U/L (14-36); BILIRUBIN,TOTAL 0.4 mg/dL (0.2-1.3); BLOOD UREA NITROGEN 12 mg/dL (7-20); CALCIUM 9.7 mg/dL (8.4-10.2); CARBON DIOXIDE 23 mmol/L (22-30); CHLORIDE 106 mmol/L (98-107); GLUCOSE 88 mg/dL (75-110); TOTAL PROTEIN 7.5 g/dL (6.3-8.2)
== END 2019-10-05 17:45 | disposition left against medical advice (07) ==
LOC: ER 14:34
DX: M54.9 Dorsalgia, unspecified (principal); R10.9 Unspecified abdominal pain
CPT/HCPCS: 36415; 80053; 81001; 84703; 85025; 99281

== ENCOUNTER 2019-10-17 16:04 | Emergency (ER) | payer SELFPAY ==
[2019-10-17] MEDS ORDERED: MAG HYDROX/AL HYDROX/SIMETH SUSP 30 ML UDCUP PO ONE (16:17)
[2019-10-17] MEDS ORDERED: LIDOCAINE 2% VISCOUS SOLN 20 ML UDCUP PO ONE (16:17)
[2019-10-17] MEDS ORDERED: METOCLOPRAMIDE HCL ORAL SOLN 10 MG/10 ML UDCUP PO ONE (16:17)
--- NOTE | 2019-10-17 16:17 | ER Document Report ---
HPI - HPI Time Seen by Provider: 10/17/19 16:14 Pain Level: 4 Notes: Otherwise healthy 19-year-old female presenting to the emergency department with chief complaint of vomiting and chest pain. Patient reports she has had some burning in the center of her chest after vomiting several times. She denies any fevers, abdominal pain, vaginal pain, dysuria, urinary frequency or abnormal vaginal discharge. Reports a few episodes of diarrhea. Denies any cardiac history. No chest pain at this time. - REPRODUCTIVE Reproductive: DENIES: : Past Medical History - General Information source: Patient - Social History Smoking Status: Never Smoker Chew tobacco use (# tins/day): No Frequency of alcohol use: None Drug Abuse: None Family History: None, DM Patient has suicidal ideation: No Patient has homicidal ideation: No - Past Medical History Cardiac Medical History: Reports: Hx Hypertension - Not currently on any medications, patient states she was diagnosed years ag Pulmonary Medical History: Denies: Hx Asthma Renal/ Medical History: Denies: Hx Peritoneal Dialysis Psychiatric Medical History: Reports: Hx Attention Deficit Hyperactivity Disorder - ODD, Hx Bipolar Disorder Past Surgical History: Reports: Hx Gynecologic Surgery - -jul 2017 - Immunizations Immunizations up to date: Yes Hx Diphtheria, Pertussis, Tetanus Vaccination: No Vertical Provider Document - CONSTITUTIONAL Notes: PHYSICAL EXAMINATION: GENERAL: Well-appearing, well-nourished and in no acute distress. HEAD: Atraumatic, normocephalic. EYES: Pupils equal round extraocular movements intact, conjunctiva are normal. ENT: Nares patent NECK: Normal range of motion LUNGS: No respiratory distress Musculoskeletal: Normal range of motion NEUROLOGICAL: Normal speech, normal gait. PSYCH: Normal mood, normal affect. SKIN: Warm, Dry, normal turgor, no rashes or lesions noted. - INFECTION CONTROL TRAVEL OUTSIDE OF THE [place] IN LAST 30 DAYS: No Course - Re-evaluation Re-evalutation: Patient reports she feels much improved after administration of medications here in the emergency department. No indication for further work-up. Patient will be discharged home at this time. - Vital Signs Vital signs: Temp Pulse Resp BP Pulse Ox 98.1 F 78 16 133/66 H 98 10/17/19 16:14 10/17/19 16:14 10/17/19 16:14 10/17/19 16:14 10/17/19 16:14 Discharge - Discharge Clinical Impression: Esophagitis Nausea and vomiting Qualifiers: Vomiting type: unspecified Vomiting Intractability: unspecified Qualified Code(s): R11.2 - Nausea with vomiting, unspecified Condition: Stable Disposition: HOME, SELF-CARE Additional Instructions: Esophagitis Your evaluation has resulted in a diagnosis of esophagitis. This is an inflammation of the lower esophagus due to stomach acid. It causes symptoms such as chest pain, heartburn, or food "sticking." This is common in persons with a hiatal hernia. Certain foods, alcohol, and aspirin contribute to esophagitis. Treatment depends on the severity. Usually, antacids or acid-suppressing medicines are used. The physician will often prescribe membrane-protective drugs (such as Carafate). Some patients benefit from medication that tightens the valve at the top of the stomach (such as Reglan). Avoid alcohol, aspirin, caffeine, tobacco, and foods that cause heartburn (such as chocolate). Elevate the head of your bed about four inches. Call the doctor if you develop severe chest pain, inability to swallow fluids, fever, or worsening symptoms. Prescriptions: Sucralfate [Carafate 1 gm Tablet] 1 gm PO ACHS #30 tablet Famotidine [Pepcid 40 mg Tablet] 40 mg PO BID #14 tablet Ondansetron [Zofran Odt 4 mg Tablet] 1 - 2 tab PO Q4H PRN #15 tab.rapdis PRN Reason: For Nausea/Vomiting
[2019-10-17 17:34] VITALS: BP 126/72
--- NOTE | 2019-10-18 12:07 | EKG REPORT ---
SEVERITY:- NORMAL ECG - SINUS RHYTHM : Confirmed by: Ramón Hill 18-Oct-2019 12:06:34
== END 2019-10-17 17:30 | disposition home or self-care (01) ==
LOC: ER 16:04
DX: K20.9 Esophagitis, unspecified (principal); R11.10 Vomiting, unspecified; R07.9 Chest pain, unspecified
CPT/HCPCS: 93005; 99284; 93010; J3490

== ENCOUNTER 2019-12-27 17:20 | Emergency (ER) | payer MEDICAID ==
--- NOTE | 2019-12-27 18:11 | ER Document Report ---
ED Medical Screen (RME) - General Chief Complaint: Chest Pain Stated Complaint: CHEST PAIN Time Seen by Provider: 12/27/19 17:49 Mode of Arrival: Ambulatory Information source: Patient Notes: Otherwise healthy 19-year-old female presenting to the emergency department chief complaint of chest pain. Patient reports chest pain began at around noon today. She states it feels like a sharp stabbing sensation in the right upper chest wall. She denies any injury to this area. Denies any alleviating exacerbating factors. Patient denies any nausea, vomiting or diarrhea. Denies any radiation of the pain. Patient does report she is 6 weeks . Heart sounds S1-S2 present, no ectopy noted, normal rate, normal rhythm. Lung sounds clear and equal bilaterally. I have greeted and performed a rapid initial assessment of this patient. A comprehensive ED assessment and evaluation of the patient, analysis of test results and completion of the medical decision making process will be conducted by additional ED providers. I have specifically instructed the patient or family members with the patient to immediately return to any nursing staff should anything change in the patient's condition or with their chief complaint. TRAVEL OUTSIDE OF THE [place] IN LAST 30 DAYS: No - Related Data Allergies/Adverse Reactions: No Known Allergies Allergy (Verified 09/08/19 15:10) Past Medical History - Past Medical History Cardiac Medical History: Reports: Hx Hypertension - Not currently on any medications, patient states she was diagnosed years ag Pulmonary Medical History: Denies: Hx Asthma Renal/ Medical History: Denies: Hx Peritoneal Dialysis Psychiatric Medical History: Reports: Hx Attention Deficit Hyperactivity Disorder - ODD, Hx Bipolar Disorder Past Surgical History: Reports: Hx Gynecologic Surgery - -jul 2017 - Immunizations Immunizations up to date: Yes Hx Diphtheria, Pertussis, Tetanus Vaccination: No Physical Exam - Vital signs Vitals: Temp Pulse Resp BP Pulse Ox 98.7 F 74 20 129/66 H 100 12/27/19 17:48 12/27/19 17:48 12/27/19 17:48 12/27/19 17:48 12/27/19 17:48 Course - Vital Signs Vital signs: Temp Pulse Resp BP Pulse Ox 98.7 F 74 20 129/66 H 100 12/27/19 17:48 12/27/19 17:48 12/27/19 17:48 12/27/19 17:48 12/27/19 17:48
--- NOTE | 2019-12-27 18:58 | RADIOLOGY REPORT (SQ) ---
EXAM DESCRIPTION: CHEST 2 VIEWS COMPLETED DATE/TIME: 12/27/2019 6:22 pm REASON FOR STUDY: chest pain COMPARISON: Chest x-ray 09/08/2019, 04/23/2019. CT angiogram chest 09/08/2019. EXAM PARAMETERS: NUMBER OF VIEWS: two views TECHNIQUE: Digital Frontal and Lateral radiographic views of the chest acquired. RADIATION DOSE: NA LIMITATIONS: none FINDINGS: LUNGS AND PLEURA: No consolidation, pneumothorax or pleural effusion. MEDIASTINUM AND HILAR STRUCTURES: No masses or contour abnormalities. HEART AND VASCULAR STRUCTURES: Heart normal size. No evidence for failure. BONES: No acute findings. HARDWARE: None in the chest. IMPRESSION: NO ACUTE RADIOGRAPHIC FINDING IN THE CHEST. TECHNICAL DOCUMENTATION: JOB ID: [id number] [employer]- All Rights Reserved Reading location - IP/workstation name: [email or web address]
--- NOTE | 2019-12-27 19:16 | ER Document Report ---
ED General - General Chief Complaint: Chest Pain Stated Complaint: CHEST PAIN Time Seen by Provider: 12/27/19 17:49 Mode of Arrival: Ambulatory Information source: Patient Notes: 19-year-old woman presents to the emergency department with a complaint of right-sided chest pain. She states the symptoms lasted for about 45 minutes. She is no longer having chest discomfort. She is approximately 6 weeks and this is her first . She she presents to be checked. TRAVEL OUTSIDE OF THE [place] IN LAST 30 DAYS: No - Related Data Allergies/Adverse Reactions: No Known Allergies Allergy (Verified 09/08/19 15:10) Past Medical History - General Information source: Patient - Social History Smoking Status: Never Smoker Family History: None, DM Patient has suicidal ideation: No Patient has homicidal ideation: No - Past Medical History Cardiac Medical History: Reports: Hx Hypertension - Not currently on any medications, patient states she was diagnosed years ag Pulmonary Medical History: Denies: Hx Asthma Renal/ Medical History: Denies: Hx Peritoneal Dialysis Psychiatric Medical History: Reports: Hx Attention Deficit Hyperactivity Disorder - ODD, Hx Bipolar Disorder Past Surgical History: Reports: Hx Gynecologic Surgery - -jul 2017 - Immunizations Immunizations up to date: Yes Hx Diphtheria, Pertussis, Tetanus Vaccination: No Review of Systems - Review of Systems Notes: Constitutional: Negative for fever. HENT: Negative for sore throat. Eyes: Negative for visual changes. Cardiovascular: Negative for chest pain. Respiratory: Negative for shortness of breath. Gastrointestinal: Negative for abdominal pain, vomiting or diarrhea. Genitourinary: Negative for dysuria. Musculoskeletal: Negative for back pain. Skin: Negative for rash. Neurological: Negative for headaches, weakness or numbness. 10 point ROS negative except as marked above and in HPI. Physical Exam - Vital signs Vitals: Temp Pulse Resp BP Pulse Ox 98.7 F 74 20 129/66 H 100 12/27/19 17:48 12/27/19 17:48 12/27/19 17:48 12/27/19 17:48 12/27/19 17:48 - Notes Notes: PHYSICAL EXAMINATION: Physical Exam: General: Well-nourished well-developed 19-year-old woman in no acute distress HEENT: NC/AT, pupils equal round and reactive to light, MM moist,nares clear, Neck: supple, no adenopathy, no masses. Lungs: clear, no wheezing, no rales no rhonchi CVS: Regular rate and rhythm no murmur gallop or rub Abdomen: Soft active nontender, no masses, no hepatosplenomegaly Ext: No edema clubbing or cyanosis. Neuro: Alert and responsive, moving all 4 extremities on command, cranial nerves intact. Skin: Intact no open lesions, no rash PSYCH: Normal mood, normal affect. Course - Re-evaluation Re-evalutation: 12/27/19 19:10 Noncardiac chest pain negative chest x-ray. May be musculoskeletal I have ensured the patient that she is not having any acute life-threatening problem and that Tylenol is the only safe medication that she can take during . She seemed reassured. - Vital Signs Vital signs: Temp Pulse Resp BP Pulse Ox 98.5 F 78 16 129/68 H 99 12/27/19 19:43 12/27/19 19:43 12/27/19 19:43 12/27/19 19:43 12/27/19 19:43 - Diagnostic Test Radiology reviewed: Image reviewed, Reports reviewed - Chest x-ray: No acute cardiopulmonary findings. Discharge - Discharge Clinical Impression: Non-cardiac chest pain Condition: Good Disposition: HOME, SELF-CARE Additional Instructions: You were diagnosed with noncardiac chest pain likely related to musculoskeletal etiology. You may use Tylenol for pain or a cold compress to the area of pain please follow-up with your doctor as needed if your symptoms are worsening or if you have other concerns you may return to the emergency department
[2019-12-27 19:46] VITALS: BP 129/68
--- NOTE | 2019-12-27 20:34 | EKG REPORT ---
SEVERITY:- NORMAL ECG - SINUS RHYTHM : Confirmed by: Janay Chapa MD 27-Dec-2019 20:32:23
== END 2019-12-27 19:43 | disposition home or self-care (01) ==
LOC: ER 17:20
DX: O26.891 Other specified pregnancy related conditions, first trimester (principal); R07.89 Other chest pain; O16.9 Unspecified maternal hypertension, unspecified trimester; Z3A.00 Weeks of gestation of pregnancy not specified
CPT/HCPCS: 71046; 93005; 93010; 99285

== ENCOUNTER 2020-01-31 21:16 | Emergency (ER) | payer MEDICAID ==
--- NOTE | 2020-01-31 21:29 | ER Document Report ---
ED General - General Stated Complaint: PAINFUL URINATION Notes: Patient is a 19-year-old -French female who is G1, P0 at approximately 11 weeks gestation who was seen at the health department nearly a month ago, diagnosed with an early UTI which she states was asymptomatic at that time, placed on Macrobid. She states she was not aware she was supposed to take the Macrobid twice a day so she took it once a day for the next 20 days and just recently finished it. She states over the course of the Macrobid she did start to have burning with urination. She states now she actually feels symptoms of UTI but she is finished the medication although she took it inappropriately. She is concerned that she still has 1 so she came for reevaluation. She denies any lower abdominal pain, vaginal bleeding or discharge. TRAVEL OUTSIDE OF THE [place] IN LAST 30 DAYS: No - Related Data Allergies/Adverse Reactions: amoxicillin Allergy (Verified 01/31/20 21:35) Past Medical History - Social History Smoking Status: Unknown if Ever Smoked Family History: None, DM - Past Medical History Cardiac Medical History: Reports: Hx Hypertension - Not currently on any medications, patient states she was diagnosed years ag Pulmonary Medical History: Denies: Hx Asthma Renal/ Medical History: Denies: Hx Peritoneal Dialysis Psychiatric Medical History: Reports: Hx Attention Deficit Hyperactivity Disorder - ODD, Hx Bipolar Disorder Past Surgical History: Reports: Hx Gynecologic Surgery - -jul 2017 - Immunizations Immunizations up to date: Yes Hx Diphtheria, Pertussis, Tetanus Vaccination: No Review of Systems - Review of Systems Genitourinary: Burning, Dysuria -: Yes All other systems reviewed and negative Physical Exam - Vital signs Vitals: Temp Pulse Resp BP Pulse Ox 98.2 F 97 16 119/82 99 01/31/20 21:20 01/31/20 21:20 01/31/20 21:20 01/31/20 21:20 01/31/20 21:20 - General General appearance: Appears well, Alert In distress: None - Respiratory Respiratory status: No respiratory distress Chest status: Nontender Breath sounds: Normal Chest palpation: Normal - Cardiovascular Rhythm: Regular Heart sounds: Normal auscultation - Abdominal Inspection: Normal Distension: No distension Bowel sounds: Normal Tenderness: Nontender Organomegaly: No organomegaly - Neurological Neuro grossly intact: Yes Cognition: Normal Orientation: AAOx4 Marceline Coma Scale Eye Opening: Spontaneous Anne Coma Scale Verbal: Oriented Anne Coma Scale Motor: Obeys Commands Anne Coma Scale Total: 15 Speech: Normal - Psychological Associated symptoms: Normal affect, Normal mood - Skin Skin Temperature: Warm Skin Moisture: Dry Skin Color: Normal Course - Re-evaluation Re-evalutation: 01/31/20 22:16 Urinary sample was greatly contaminated with squamous cells. Given the patient's symptoms history of UTI diagnosis and we will prophylax with Keflex at this time pending culture. She will follow-up with the health department as discussed. Counseled her at length regarding the importance of outpatient follow-up and advised she return here or any ER immediately with any new, persistent or worsening symptoms. She verbalized understood and agreed. - Vital Signs Vital signs: Temp Pulse Resp BP Pulse Ox 98.2 F 97 16 119/82 99 01/31/20 21:20 01/31/20 21:20 01/31/20 21:20 01/31/20 21:20 01/31/20 21:20 - Laboratory Laboratory results interpreted by me: 01/31/20 21:30 Urine Protein 30 H Urine Ketones TRACE H Urine Urobilinogen 2.0 H Leukocyte Esterase Rfl TRACE H Urine Ascorbic Acid 40 H Discharge - Discharge Clinical Impression: Dysuria UTI (urinary tract infection) Qualifiers: Urinary tract infection type: site unspecified Hematuria presence: without hematuria Qualified Code(s): N39.0 - Urinary tract infection, site not specified Condition: Stable Disposition: HOME, SELF-CARE Instructions: Urinary Tract Infection ([facility]) Additional Instructions: Follow-up with your regular doctor in 2 to 3 days for reevaluation. Return here or any ER immediately with any new, persistent or worsening symptoms. Prescriptions: Cephalexin Monohydrate [Keflex 500 mg Capsule] 500 mg PO Q6H 10 Days #40 capsule
[2020-01-31 21:53] LABS: APPEARANCE,URINE TURBID; BILIRUBIN,URINE NEGATIVE (NEGATIVE); COLOR,URINE DARK YELLOW; GLUCOSE, URINE NEGATIVE (NEGATIVE); KETONES,URINE TRACE mg/dL (NEGATIVE); PROTEIN,URINE 30 mg/dL (NEGATIVE); URINE SPECIFIC GRAVITY 1.031
[2020-01-31] MEDS ORDERED: CEPHALEXIN 500 MG CAPSULE PO ONE (22:16)
[2020-01-31 22:41] VITALS: BP 122/70
== END 2020-01-31 22:38 | disposition home or self-care (01) ==
LOC: ER 21:16
DX: O23.41 Unspecified infection of urinary tract in pregnancy, first trimester (principal); Z3A.11 11 weeks gestation of pregnancy; Z88.0 Allergy status to penicillin
CPT/HCPCS: 81001; 99283

== ENCOUNTER 2020-03-29 13:20 | Outpatient (CLI) | payer MEDICAID ==
[2020-03-29 14:43] LABS: APPEARANCE,URINE SLIGHTLY-CLOUDY; BILIRUBIN,URINE NEGATIVE (NEGATIVE); COLOR,URINE STRAW; GLUCOSE, URINE NEGATIVE (NEGATIVE)
[2020-03-29 14:44] LABS: ADD MANUAL MICROSCOPIC YES; KETONES,URINE NEGATIVE (NEGATIVE); LEUKOCYTE ESTERASE,URINE NEGATIVE (NEGATIVE); NITRITE,URINE NEGATIVE (NEGATIVE); PROTEIN,URINE NEGATIVE (NEGATIVE); URINE SPECIFIC GRAVITY 1.009; UROBILINOGEN,URINE NEGATIVE mg/dL (<2.0)
[2020-03-29 14:45] LABS: BACTERIA,URINE 3+ /HPF; RBC,URINE NONE SEEN /HPF; WBC,URINE RARE /HPF
[2020-03-29 14:50] LABS: URINE AMPHETAMINES SCREEN NEGATIVE; URINE BARBITURATES SCREEN NEGATIVE; URINE BENZODIAZEPINES SCREEN NEGATIVE; URINE COCAINE SCREEN NEGATIVE; URINE MARIJUANA (THC) SCREEN NEGATIVE; URINE METHADONE SCREEN NEGATIVE; URINE PHENCYCLIDINE SCREEN NEGATIVE
== END 2020-03-29 15:17 | disposition home or self-care (01) ==
LOC: LC 13:20
PROVIDERS: ATTEND Obstetrics & Gynecology
DX: O26.892 Other specified pregnancy related conditions, second trimester (principal); R10.9 Unspecified abdominal pain; Z3A.20 20 weeks gestation of pregnancy
CPT/HCPCS: 80307; 81001; 87086

== ENCOUNTER 2020-04-07 17:46 | Outpatient (CLI) | payer MEDICAID ==
[2020-04-07 18:40] LABS: APPEARANCE,URINE SLIGHTLY-CLOUDY; BILIRUBIN,URINE NEGATIVE (NEGATIVE); COLOR,URINE YELLOW; GLUCOSE, URINE NEGATIVE (NEGATIVE); KETONES,URINE NEGATIVE (NEGATIVE); LEUKOCYTE ESTERASE,URINE TRACE (NEGATIVE); NITRITE,URINE NEGATIVE (NEGATIVE); PROTEIN,URINE NEGATIVE (NEGATIVE)
[2020-04-07 18:51] LABS: URINE AMPHETAMINES SCREEN NEGATIVE; URINE BARBITURATES SCREEN NEGATIVE; URINE BENZODIAZEPINES SCREEN NEGATIVE; URINE COCAINE SCREEN NEGATIVE; URINE MARIJUANA (THC) SCREEN NEGATIVE; URINE METHADONE SCREEN NEGATIVE; URINE PHENCYCLIDINE SCREEN NEGATIVE
[2020-04-07] MEDS ORDERED: OXYTOCIN 10 UNIT/ML VIAL ONE (19:42)
[2020-04-07] MEDS ORDERED: MISOPROSTOL 0.2 MG TABLET ONE (19:42)
[2020-04-07] MEDS ORDERED: LIDOCAINE 1% INJ-PF (10 MG/ML) 30 ML SDV ONE (19:42)
--- NOTE | 2020-04-07 20:03 | RADIOLOGY REPORT (SQ) ---
EXAM DESCRIPTION: U/S OB 14+ TRNABD 1GES W/O DOP IMAGES COMPLETED DATE/TIME: 04/07/2020 7:36 pm REASON FOR STUDY: For and placental evaluation COMPARISON: None. TECHNIQUE: Static and Dynamic grayscale imaging performed of gravid uterus using transabdominal appr oac. Additional selected color Doppler and spectral images recorded. All stored on PACS. LIMITATIONS: None. FINDINGS: FETUSES SEEN:1 EGA: 21 weeks 3 days Calculated using BPD,FL,HC,AC documented on images. No discrepancy with clinica l dates. SUYAPA: 08/15/2020 EFW: 4 in 32+/- 64 grams PERCENTILE: Not calculated. LVP: 4.8 x 10.7 cm PLACENTA: Anterior grade 1 PRESENTATION: Cephalic. ANATOMY: HEART RATE: 153 beats per minute. FOUR CHAMBER HEART: Visualized. THREE VESSEL CORD: Yes. CORD INSERTION: Visualized. KIDNEYS AND BLADDER: Visualized. Appear normal. STOMACH: Visualized. Appears normal. SPINE: Normal as visualized. BRAIN AND LATERAL VENTRICLES: Visualized. Appear normal. OTHER: No other significant finding. MATERNAL ADNEXA: Maternal ovaries not visualized. CERVICAL LENGTH: 3 cm Closed. OTHER: No other significant finding. IMPRESSION: LIVING INTRAUTERINE . ESTIMATED GESTATIONAL AGE 21 weeks 3 days. NO VISUALIZED ANOMALIES. Trimester of : Second trimester - 13 weeks 1 day to 27 weeks 6 days. TECHNICAL DOCUMENTATION: JOB ID: [id number] 2010 [employer]- All Rights Reserved Reading location - IP/workstation name: [email or web address]
== END 2020-04-07 19:46 | disposition home or self-care (01) ==
LOC: LC 17:46
PROVIDERS: ATTEND Obstetrics & Gynecology
DX: O99.89 Other specified diseases and conditions complicating pregnancy, childbirth and the puerperium (principal); O9A.212 Injury, poisoning and certain other consequences of external causes complicating pregnancy, second trimester; S36.32XA Contusion of stomach, initial encounter; X58.XXXA Exposure to other specified factors, initial encounter; Z3A.21 21 weeks gestation of pregnancy
CPT/HCPCS: 76805; 80307; 81005; J2590; J3490

== ENCOUNTER 2020-05-02 18:11 | Emergency (ER) | payer MEDICAID ==
[2020-05-02 18:25] VITALS: BP 113/67
--- NOTE | 2020-05-02 19:05 | ER Document Report ---
ED ENT - General TRAVEL OUTSIDE OF THE [place] IN LAST 30 DAYS: No <EARL NEFF - Last Filed: 05/02/20 19:55> <BLANCA ARDON - Last Filed: 05/02/20 21:25> - General Chief Complaint: Sore Throat Stated Complaint: SORETHROAT/HEADACHE Time Seen by Provider: 05/02/20 18:52 Notes: CHIEF COMPLAINT: Sore throat for 1 day HPI: 19-year-old female who is 6 months presenting for sore throat for 1 day. Mild frontal headache. No abdominal complaints no nausea vomiting cough shortness of breath or fever. Patient is not concerned about COVID states she has not been around any positive patients or individuals and has not traveled ROS: See HPI - all other systems were reviewed and are otherwise negative Constitutional: no fever Eyes: no drainage, no blurred vision ENT: no runny nose, + sore throat Cardiovascular: no chest pain Resp: no SOB, no cough GI: no vomiting, no diarrhea, no abdominal pain : no dysuria Integumentary: no rash Allergy: no hives Musculoskeletal: no extremity pain or swelling Neurological: no numbness/tingling, no weakness MEDICATIONS: I agree with the patient medications as charted by the RN. ALLERGIES: I agree with the allergies as charted by the RN. PAST MEDICAL HISTORY/PAST SURGICAL HISTORY: Reviewed and agree as charted by RN. SOCIAL HISTORY: Reviewed and agree as charted by RN. FAMILY HISTORY: No significant familial comorbid conditions directly related to patient complaint EXAM: Reviewed vital signs as charted by RN. CONSTITUTIONAL: Alert and oriented and responds appropriately to questions. Well-appearing; well-nourished HEAD: Normocephalic; atraumatic EYES: PERRL; Conjunctivae clear, sclerae non-icteric ENT: normal nose; no rhinorrhea; moist mucous membranes; pharynx without lesions noted, no uvula edema or deviation, no tonsillar hypertrophy, phonation normal NECK: Supple without meningismus; non-tender; no cervical lymphadenopathy, no masses CARD: RRR; no murmurs, no clicks, no rubs, no gallops; symmetric distal pulses RESP: Normal chest excursion without splinting or tachypnea; breath sounds clear and equal bilaterally; no wheezes, no rhonchi, no rales, pulse oximetry 98% on room air not hypoxic ABD/GI: Normal bowel sounds; non-distended; soft, non-tender, no rebound, no guarding; gravid uterus is palpable and nontender BACK: The back appears normal and is non-tender to palpation, there is no CVA tenderness EXT: Normal ROM in all joints; non-tender to palpation; no cyanosis, no effusions, no edema SKIN: Normal color for age and race; warm; dry; good turgor; no acute lesions noted NEURO: Moves all extremities equally; Motor and sensory function intact PSYCH: The patient's mood and manner are appropriate. Grooming and personal hygiene are appropriate. MDM: 19-year-old 6-month female with sore throat for 1 day. No significant pharyngeal erythema she is not concerned about COVID-19. Will obtain a rapid strep if negative will treat as a viral illness symptomatically follow-up [employer] (EARL NEFF) - Related Data Allergies/Adverse Reactions: amoxicillin Allergy (Verified 03/29/20 14:00) Past Medical History - Social History Family History: None, DM - Past Medical History Cardiac Medical History: Reports: Hx Hypertension - Not currently on any medications, patient states she was diagnosed years ag Pulmonary Medical History: Denies: Hx Asthma Renal/ Medical History: Denies: Hx Peritoneal Dialysis Psychiatric Medical History: Reports: Hx Attention Deficit Hyperactivity Disorder - ODD, Hx Bipolar Disorder Past Surgical History: Reports: Hx Gynecologic Surgery - -jul 2017 - Immunizations Immunizations up to date: Yes Hx Diphtheria, Pertussis, Tetanus Vaccination: No <EARL NEFF - Last Filed: 05/02/20 19:55> - General Information source: Patient - Social History Smoking Status: Never Smoker Lives with: Family <BLANCA ARDON - Last Filed: 05/02/20 21:25> Physical Exam - Vital signs Vitals: Temp Pulse Resp BP Pulse Ox 98.4 F 83 18 113/67 100 05/02/20 18:24 05/02/20 18:24 05/02/20 18:24 05/02/20 18:24 05/02/20 18:24 Course <EARL NEFF - Last Filed: 05/02/20 19:55> <BLANCA ARDON - Last Filed: 05/02/20 21:25> - Re-evaluation Re-evalutation: 05/02/20 19:55 Rapid strep is not yet resulted. Report will be given oncoming shift to follow and disposition. If strep results prior to their arrival I will disposition the patient (EARL NEFF) 05/02/20 20:45 Strep test is negative. Patient alert, well-appearing, oropharyngeal exam is actually unremarkable on exam. She states she had a headache earlier but this resolved. No current complaints. Vital signs unremarkable. Discussed negative strep, pending culture, symptom management, options. Patient does not want a be tested for the coronavirus but does not have any reported risk factors for this either. No other symptoms other than mild pharyngitis currently. No [employer] complaints. Discussed follow-up and return cautions. Patient states understanding and agreement. (BLANCA ARDON) - Vital Signs Vital signs: Temp Pulse Resp BP Pulse Ox 98.4 F 83 18 113/67 100 05/02/20 19:00 05/02/20 18:24 05/02/20 18:24 05/02/20 18:24 05/02/20 18:24 Discharge <EARL NEFF - Last Filed: 05/02/20 19:55> <BLANCA ARDON - Last Filed: 05/02/20 21:25> - Discharge Clinical Impression: Pharyngitis Qualifiers: Pharyngitis/tonsillitis etiology: unspecified etiology Qualified Code(s): J02.9 - Acute pharyngitis, unspecified Condition: Stable Disposition: HOME, SELF-CARE Additional Instructions: Your strep test is negative. Your evaluation is reassuring. This is most likely viral and should simply resolve with time. Take Tylenol for pain, drink plenty of fluids, you can take Benadryl especially at night to help with possible postnasal drip. Follow-up with your provider for additional management. Return for any concerning symptoms including severe worsening pain, difficulty swallowing or breathing, spiking fever, or any other concerning or worsening symptoms.
== END 2020-05-02 21:05 | disposition home or self-care (01) ==
LOC: ER 18:11
DX: J02.9 Acute pharyngitis, unspecified (principal); R51 Headache; I10 Essential (primary) hypertension; Z88.1 Allergy status to other antibiotic agents
CPT/HCPCS: 36415; 87070; 87880; 99283

== ENCOUNTER 2020-05-09 15:10 | Emergency (ER) | payer MEDICAID ==
--- NOTE | 2020-05-09 16:29 | ER Document Report ---
ED Respiratory Problem - General Chief Complaint: Shortness Of Breath Stated Complaint: SHORTNESS OF BREATH/26 WKS PREG Time Seen by Provider: 05/09/20 15:53 Primary Care Provider: NELLY ZHOU MD [Primary Care Provider] - Follow up as needed Notes: Patient is a 19-year-old G1, P0 who presents to the emergency department with a chief complaint of shortness of breath. Patient reports she is currently 26 weeks . Patient states that for about 1 month she has had shortness of breath that occurs when walking or going up and down the steps. 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 Patient reports she does have chest pain that is present when she is up moving around. Patient states that this chest pain disappears when she is at rest. Patient denies fever, cough, runny nose. Patient reports she did see the in home nanny last week and was told to continue her albuterol. Patient states she does not have a history of asthma but just was given the albuterol for the shortness of breath. Patient reports no relief from albuterol. TRAVEL OUTSIDE OF THE [place] IN LAST 30 DAYS: No - Related Data Allergies/Adverse Reactions: amoxicillin Allergy (Verified 03/29/20 14:00) Past Medical History - General Information source: Patient - Social History Smoking Status: Never Smoker Chew tobacco use (# tins/day): No Frequency of alcohol use: None Drug Abuse: None Lives with: Family Family History: None, DM - Past Medical History Cardiac Medical History: Reports: Hx Hypertension - Not currently on any medications, patient states she was diagnosed years ag Pulmonary Medical History: Reports: None Denies: Hx Asthma EENT Medical History: Reports: None Neurological Medical History: Reports: None Endocrine Medical History: Reports: None Renal/ Medical History: Reports: None. Denies: Hx Peritoneal Dialysis Malignancy Medical History: Reports: None GI Medical History: Reports: None Musculoskeletal Medical History: Reports None Skin Medical History: Reports None Psychiatric Medical History: Reports: Hx Attention Deficit Hyperactivity Disorder - ODD, Hx Bipolar Disorder Traumatic Medical History: Reports: None Infectious Medical History: Reports: None Past Surgical History: Reports: Hx Gynecologic Surgery - -jul 2017 - Immunizations Immunizations up to date: Yes Hx Diphtheria, Pertussis, Tetanus Vaccination: No Review of Systems - Review of Systems Constitutional: No symptoms reported EENT: No symptoms reported Cardiovascular: See HPI Respiratory: See HPI Gastrointestinal: No symptoms reported Genitourinary: No symptoms reported Female Genitourinary: No symptoms reported Musculoskeletal: No symptoms reported Skin: No symptoms reported Hematologic/Lymphatic: No symptoms reported Neurological/Psychological: No symptoms reported Physical Exam - Vital signs Vitals: Temp 98.3 F 05/09/20 15:11 - Notes Notes: GENERAL: Well-appearing, well-nourished and in no acute distress. HEAD: Atraumatic, normocephalic. EYES: Pupils equal round and reactive to light, extraocular movements intact, sclera anicteric, conjunctiva are normal. ENT: TMs normal, nares patent, oropharynx clear without exudates. Moist mucous membranes. NECK: Normal range of motion, supple without lymphadenopathy or JVD. LUNGS: Breath sounds clear to auscultation bilaterally and equal. No wheezes rales or rhonchi. HEART: Regular rate and rhythm without murmurs, rubs or gallops. Chest wall non tender. ABDOMEN: Soft, , nontender, normoactive bowel sounds. No guarding, no rebound. No masses appreciated. BACK: No cervical, thoracic, lumbar midline tenderness. No saddle anesthesia, normal distal neurovascular exam. GENITOURINARY: Deferred. EXTREMITIES: Normal range of motion, no pitting or edema. No clubbing or cyanosis. NEUROLOGICAL: Cranial nerves II through XII grossly intact. Normal speech, normal gait. PSYCH: Normal mood, normal affect. SKIN: Warm, Dry, normal turgor, no rashes or lesions noted. Course - Re-evaluation Re-evalutation: 05/09/20 16:40 Upon initial exam patient is resting comfortably on the stretcher. There is no acute distress or shortness of breath noted. Patient was initially tachycardic in the 120s when she arrived. Will recheck vital signs. Patient is 26 weeks . Denies abdominal pain, vaginal bleeding or discharge. Patient reports she has been seen by her HEEL TRIMMER as well as a in home nanny last week for her shortness of breath. The in home nanny instructed her to continue taking albuterol. Patient reports she does not have wheezing and that the albuterol is not helping. 18:30 Vital signs were rechecked and patient is resting comfortably. Tachycardia has improved. Patient denies recent long car rides, history of blood clots, or sick contacts. 05/09/20 20:07 TSH is within normal limits. I did discuss the results with the patient. She is resting comfortably, drinking a smoothie, and talking on her cell phone. I did inform the patient about with her in home nanny if she continues to have problems given strict return precautions to include acute worsening of shortness of breath, chest pain, coughing up blood, fever or any new or worsening symptoms. Patient verbalized understanding. - Vital Signs Vital signs: Temp Pulse Resp BP Pulse Ox 98.6 F 94 16 109/59 L 99 05/09/20 17:03 05/09/20 17:03 05/09/20 15:32 05/09/20 17:03 05/09/20 17:03 - Laboratory Result Diagrams: 05/09/20 16:47 05/09/20 16:47 Laboratory results interpreted by me: 05/09/20 05/09/20 16:47 16:47 RBC 3.61 L Hgb 11.1 L Hct 31.8 L Sodium 134.4 L Chloride 108 H Anion Gap 4 L BUN 5 L Creatinine 0.43 L Total Protein 5.9 L Albumin 3.1 L - Diagnostic Test Radiology reviewed: Reports reviewed Radiology results interpreted by me: 05/09/20 19:14 Chest X-Ray 05/09/20 16:34 IMPRESSION: NO ACUTE RADIOGRAPHIC FINDING IN THE CHEST. - EKG Interpretation by Me Additional EKG results interpreted by me: 05/09/20 19:47 Patient's EKG shows sinus rhythm with a heart rate of 95. Patient's CT interval 144, QT 360 and QTc is 453. Patient has a normal axis deviation but no ST segment changes in consecutive leads Discharge - Discharge Clinical Impression: Shortness of breath Qualifiers: Weeks of gestation: 26 weeks Qualified Code(s): Z3A.26 - 26 weeks gestation of Condition: Stable Disposition: HOME, SELF-CARE Additional Instructions: Today you were seen in the emergency department for shortness of breath. We did obtain an EKG, x-ray, blood work which does not show any acute abnormality. *It is unsure what is causing the shortness of breath. I would follow-up with your in home nanny. *Please return to the emergency department if you develop worsening shortness of breath, chest pain, fever, cough, confusion or fainting. Shortness of breath could be normal physiological changes due to as you have reported it is gotten slightly worse as your baby has grown and abdomen is gotten larger over the past month. SHORTNESS OF BREATH OR DYSPNEA: You were evaluated for shortness of breath, or dyspnea. Dyspnea has many causes, and some are more serious than others. Sometimes it's impossible to diagnose the cause of dyspnea with the tests that are available on an emergency basis. Based on our evaluation today, you do not need hospitalization now. We found no evidence of pneumonia, collapsed lung, blood clots in the lung, tumors, or heart failure. Causes of non-specific dyspnea can include asthma or bronchospasm, hyperventilation, emotional distress, heart disease, emphysema, fibrosis of the lung, and stiffness of the chest wall. In healthy individuals with a single episode, it's sometimes reasonable to do nothing but wait to see if the problem occurs again. Additional tests used to evaluate dyspnea can include cardiac stress testing, echocardiography, pulmonary function testing, CAT scan of the chest, bronchoscopy or pulmonary biopsy. Return if shortness of breath persists or worsens, or if you develop chest pain, fever, cough, confusion, or fainting. NORMAL EXAM AND WORKUP: At this time, your examination and workup show no significant abnormality. No significant abnormal physical findings were noted. All laboratory, EKG, and imaging (x-ray, CT scans, ultrasound) studies that were ordered show no significant abnormality. Although your examination and all studies that were ordered showed no significant abnormal finding, there are no examinations and no studies that are 100% accurate. There is always the possibility that some abnormality could exist and not be detected with physical examination or within the limits and capabilities of laboratory and other studies. You should return or follow up as you were instructed on your visit today for further evaluation if your symptoms do not resolve. FOLLOW-UP CARE: If you have been referred to a physician for follow-up care, call the physicia office for an appointment as you were instructed or within the next two days. If you experience worsening or a significant change in your symptoms, notify the physician immediately or return to the Emergency Department at any time for re-evaluation. Referrals: NELLY ZHOU MD [Primary Care Provider] - Follow up as needed
[2020-05-09 17:05] LABS: ABSOLUTE EOSINOPHILS # (AUTO) 0.1 10^3/uL (0.0-0.6); ABSOLUTE LYMPHOCYTES (AUTO) 1.7 10^3/uL (0.5-4.7); ABSOLUTE MONOCYTES (AUTO) 0.6 10^3/uL (0.1-1.4); ABSOLUTE NEUT (AUTO) 6.5 10^3/uL (1.7-8.2); BASOPHILS % (AUTO) 0.2 % (0-2); EOSINOPHILS % (AUTO) 1.5 % (0-6); HEMATOCRIT 31.8 % (36.0-47.0); HEMOGLOBIN 11.1 g/dL (12.0-15.5); MEAN CORPUSCULAR HEMOGLOBIN 30.7 pg (27.0-33.4); MEAN CORPUSCULAR HGB CONC 34.9 g/dL (32.0-36.0); MEAN CORPUSCULAR VOLUME 88 fl (80-97); MONOCYTES % (AUTO) 6.7 % (3-13); PLATELET COUNT 194 10^3/uL (150-450); RED BLOOD COUNT 3.61 10^6/uL (3.72-5.28); RED CELL DISTRIBUTION WIDTH 13.7 % (11.5-14.0); SEGMENTED NEUTROPHILS % (AUTO) 72.6 % (42-78); TOTAL CELLS COUNTED % (AUTO) 100 %; WHITE BLOOD COUNT 8.9 10^3/uL (4.0-10.5)
--- NOTE | 2020-05-09 17:22 | RADIOLOGY REPORT (SQ) ---
EXAM DESCRIPTION: CHEST SINGLE VIEW IMAGES COMPLETED DATE/TIME: 05/09/2020 3:59 pm REASON FOR STUDY: Shortness of breath, 26 weeks . COMPARISON: 04/23/2019 EXAM PARAMETERS: NUMBER OF VIEWS: One view. TECHNIQUE: Single frontal radiographic view of the chest acquired. RADIATION DOSE: NA LIMITATIONS: None. FINDINGS: LUNGS AND PLEURA: No opacities, masses or pneumothorax. No pleural effusion. MEDIASTINUM AND HILAR STRUCTURES: No masses. Contour normal. HEART AND VASCULAR STRUCTURES: Heart normal in size. Normal vasculature. BONES: No acute findings. HARDWARE: None in the chest. OTHER: No other significant finding. IMPRESSION: NO ACUTE RADIOGRAPHIC FINDING IN THE CHEST. TECHNICAL DOCUMENTATION: JOB ID: [id number] 2010 [employer]- All Rights Reserved Reading location - IP/workstation name: [email or web address]
[2020-05-09 17:30] LABS: ALBUMIN 3.1 g/dL (3.5-5.0); ALKALINE PHOSPHATASE 70 U/L (38-126); ASPARTATE AMINO TRANSFERASE 17 U/L (14-36); BILIRUBIN,TOTAL 0.2 mg/dL (0.2-1.3); BLOOD UREA NITROGEN 5 mg/dL (7-20); CALCIUM 8.6 mg/dL (8.4-10.2); CARBON DIOXIDE 22 mmol/L (22-30); CHLORIDE 108 mmol/L (98-107); GLUCOSE 82 mg/dL (75-110); POTASSIUM 3.8 mmol/L (3.6-5.0); TOTAL PROTEIN 5.9 g/dL (6.3-8.2)
[2020-05-09 17:42] LABS: ANION GAP 4 (5-19)
[2020-05-09 20:56] VITALS: BP 115/56
== END 2020-05-09 20:54 | disposition home or self-care (01) ==
LOC: ER 15:10
DX: O26.892 Other specified pregnancy related conditions, second trimester (principal); R06.02 Shortness of breath; R07.9 Chest pain, unspecified; O10.912 Unspecified pre-existing hypertension complicating pregnancy, second trimester; Z79.899 Other long term (current) drug therapy; Z3A.26 26 weeks gestation of pregnancy; Z88.0 Allergy status to penicillin
CPT/HCPCS: 36415; 71045; 80053; 84443; 84484; 85025; 99285

== ENCOUNTER 2020-06-20 00:15 | Outpatient (CLI) | payer MEDICAID ==
[2020-06-20 00:48] LABS: APPEARANCE,URINE SLIGHTLY-CLOUDY; BILIRUBIN,URINE NEGATIVE (NEGATIVE); COLOR,URINE YELLOW; GLUCOSE, URINE NEGATIVE (NEGATIVE); KETONES,URINE NEGATIVE (NEGATIVE); LEUKOCYTE ESTERASE,URINE MODERATE (NEGATIVE); NITRITE,URINE NEGATIVE (NEGATIVE); PROTEIN,URINE NEGATIVE (NEGATIVE); URINE SPECIFIC GRAVITY 1.027
[2020-06-20] MEDS ORDERED: RINGERS SOLUTION,LACTATED 1,000 ML IV ONE (00:56)
[2020-06-20 01:04] LABS: URINE AMPHETAMINES SCREEN NEGATIVE; URINE BARBITURATES SCREEN NEGATIVE; URINE BENZODIAZEPINES SCREEN NEGATIVE; URINE COCAINE SCREEN NEGATIVE; URINE MARIJUANA (THC) SCREEN NEGATIVE; URINE METHADONE SCREEN NEGATIVE; URINE PHENCYCLIDINE SCREEN NEGATIVE
--- NOTE | 2020-06-20 02:22 | Non Stress Test Report ---
Non Stress Test Datetime Report Generated by CPN: 06/20/2020 02:21 DEMOGRAPHIC EGA NST: 32.0 INDICATION Indication for Study (NST) Other: lc VITAL SIGNS Temperature - NST: 97.4 Pulse - NST: 82 RESP - NST: 17 NBPSYS NST: 109 NBPDIA NST: 57 MONITORING Monitor Explained: Monitor Explained; Test Explained; Patient Verbalized Understanding Time on Monitor: 06/20/2020 01:05 Time off Monitor: 06/20/2020 01:48 NST Duration: 43 NST INTERVENTIONS NST Interventions: Reposition Patient Physician Notified NST: Dr Hodge BABY A: [id number] BABY A Movement : Present Contraction Frequency : 0 FHR Baseline : 150 Accelerations : 15X15 Decelerations : None Variability : Moderate 6-25bpm NST Review: Meets Criteria for Reactive NST NST Review and Verified By : Seamus Lorenzo RN NST Results: Reactive NST REPORT Report Trigger: Send Report
== END 2020-06-20 02:02 | disposition home or self-care (01) ==
LOC: LC 00:15
PROVIDERS: ATTEND Obstetrics & Gynecology Gynecology
DX: O99.283 Endocrine, nutritional and metabolic diseases complicating pregnancy, third trimester (principal); E86.0 Dehydration; Z3A.32 32 weeks gestation of pregnancy; Z88.1 Allergy status to other antibiotic agents
CPT/HCPCS: 59025; 80307; 81001

== ENCOUNTER 2020-07-12 14:04 | Outpatient (CLI) | payer MEDICAID ==
[2020-07-12 14:50] LABS: APPEARANCE,URINE CLOUDY; BILIRUBIN,URINE NEGATIVE (NEGATIVE); COLOR,URINE YELLOW; GLUCOSE, URINE NEGATIVE (NEGATIVE); KETONES,URINE NEGATIVE (NEGATIVE); LEUKOCYTE ESTERASE,URINE LARGE (NEGATIVE); NITRITE,URINE NEGATIVE (NEGATIVE); PROTEIN,URINE 100 mg/dL (NEGATIVE); URINE SPECIFIC GRAVITY 1.026
[2020-07-12 15:06] LABS: URINE AMPHETAMINES SCREEN NEGATIVE; URINE BARBITURATES SCREEN NEGATIVE; URINE BENZODIAZEPINES SCREEN NEGATIVE; URINE COCAINE SCREEN NEGATIVE; URINE MARIJUANA (THC) SCREEN NEGATIVE; URINE METHADONE SCREEN NEGATIVE; URINE PHENCYCLIDINE SCREEN NEGATIVE
[2020-07-12] MEDS ORDERED: RINGERS SOLUTION,LACTATED 1,000 ML IV ONE (15:14)
[2020-07-12] MEDS ORDERED: CEFTRIAXONE INJ 250 MG VIAL IV ONE (15:15)
[2020-07-12] MEDS ORDERED: CEFTRIAXONE INJ 1000 MG VIAL IV ONE (15:22)
[2020-07-12] MEDS ORDERED: CEFTRIAXONE INJ 1000 MG VIAL ONE (15:34)
== END 2020-07-12 17:15 | disposition home or self-care (01) ==
LOC: LC 14:04
PROVIDERS: ATTEND Obstetrics & Gynecology
DX: O23.43 Unspecified infection of urinary tract in pregnancy, third trimester (principal); Z3A.35 35 weeks gestation of pregnancy; Z88.1 Allergy status to other antibiotic agents
CPT/HCPCS: 59025; 94760; 87086; 81001; 80307; J0696

== ENCOUNTER 2020-08-03 18:09 | Outpatient (CLI) | payer MEDICAID ==
--- NOTE | 2020-08-03 18:32 | Non Stress Test Report ---
Non Stress Test Datetime Report Generated by CPN: 08/03/2020 18:32 DEMOGRAPHIC EGA NST: 35.1 INDICATION Indication for Study (NST) Other: IUP @ 35.1 wks, UTI VITAL SIGNS Temperature - NST: 97.4 Pulse - NST: 87 RESP - NST: 17 NBPSYS NST: 110 NBPDIA NST: 67 MONITORING Monitor Explained: Monitor Explained; Test Explained; Patient Verbalized Understanding Time on Monitor: 07/12/2020 14:20 Time off Monitor: 07/12/2020 17:02 NST Duration: 162 NST INTERVENTIONS NST Interventions: PO Hydration; IV Fluids; Reposition Patient Physician Notified NST: A. Valladares, CNM BABY A: [id number] BABY A Movement : Present Contraction Frequency : Rare FHR Baseline : 135 Accelerations : 15X15 Decelerations : None Variability : Moderate 6-25bpm NST Review: Meets Criteria for Reactive NST NST Review and Verified By : Dion Baicedrick RN NST Results: Reactive NST REPORT Report Trigger: Send Report
[2020-08-03 19:14] LABS: APPEARANCE,URINE CLOUDY; BILIRUBIN,URINE NEGATIVE (NEGATIVE); COLOR,URINE AMBER; GLUCOSE, URINE NEGATIVE (NEGATIVE); KETONES,URINE NEGATIVE (NEGATIVE); LEUKOCYTE ESTERASE,URINE LARGE (NEGATIVE); NITRITE,URINE NEGATIVE (NEGATIVE); PROTEIN,URINE 30 mg/dL (NEGATIVE); URINE SPECIFIC GRAVITY 1.031
[2020-08-03 19:41] LABS: URINE AMPHETAMINES SCREEN NEGATIVE; URINE BARBITURATES SCREEN NEGATIVE; URINE BENZODIAZEPINES SCREEN NEGATIVE; URINE COCAINE SCREEN NEGATIVE; URINE MARIJUANA (THC) SCREEN NEGATIVE; URINE METHADONE SCREEN NEGATIVE; URINE PHENCYCLIDINE SCREEN NEGATIVE
== END 2020-08-03 19:53 | disposition home or self-care (01) ==
LOC: LC 18:09
PROVIDERS: ATTEND Obstetrics & Gynecology
DX: O99.283 Endocrine, nutritional and metabolic diseases complicating pregnancy, third trimester (principal); E86.0 Dehydration; Z3A.38 38 weeks gestation of pregnancy; Z88.1 Allergy status to other antibiotic agents
CPT/HCPCS: 59025; 80307; 81005; 84112

== ENCOUNTER 2020-08-17 16:37 | Inpatient (IN) | payer MEDICAID ==
[2020-08-17] MEDS ORDERED: DINOPROSTONE 10 MG VAGINAL INSERT.SR ONE (18:21)
[2020-08-17] MEDS ORDERED: OXYTOCIN/0.9 % SODIUM CHLORIDE 30 UNIT/500 ML RTUINJ IV PRN (18:32)
[2020-08-17] MEDS ORDERED: RINGERS SOLUTION,LACTATED 300 ML IV ONE (18:32)
[2020-08-17] MEDS ORDERED: DINOPROSTONE 10 MG VAGINAL INSERT.SR PV ONE (18:32)
[2020-08-17] MEDS ORDERED: RINGERS SOLUTION,LACTATED 1,000 ML IV PRN (18:32)
[2020-08-17 18:33] LABS: APPEARANCE,URINE CLOUDY; BILIRUBIN,URINE NEGATIVE (NEGATIVE); COLOR,URINE AMBER; GLUCOSE, URINE NEGATIVE (NEGATIVE); KETONES,URINE NEGATIVE (NEGATIVE); LEUKOCYTE ESTERASE,URINE MODERATE (NEGATIVE); NITRITE,URINE NEGATIVE (NEGATIVE); PROTEIN,URINE 100 mg/dL (NEGATIVE); URINE SPECIFIC GRAVITY 1.026
[2020-08-17 18:44] LABS: URINE AMPHETAMINES SCREEN NEGATIVE; URINE BARBITURATES SCREEN NEGATIVE; URINE BENZODIAZEPINES SCREEN NEGATIVE; URINE COCAINE SCREEN NEGATIVE; URINE MARIJUANA (THC) SCREEN NEGATIVE; URINE METHADONE SCREEN NEGATIVE; URINE PHENCYCLIDINE SCREEN NEGATIVE
[2020-08-17 19:04] LABS: HEMATOCRIT 28.5 % (36.0-47.0); HEMOGLOBIN 9.6 g/dL (12.0-15.5); MEAN CORPUSCULAR HEMOGLOBIN 26.4 pg (27.0-33.4); MEAN CORPUSCULAR HGB CONC 33.7 g/dL (32.0-36.0); MEAN CORPUSCULAR VOLUME 78 fl (80-97); PLATELET COUNT 186 10^3/uL (150-450); RED BLOOD COUNT 3.65 10^6/uL (3.72-5.28); RED CELL DISTRIBUTION WIDTH 16.2 % (11.5-14.0); WHITE BLOOD COUNT 6.3 10^3/uL (4.0-10.5)
--- NOTE | 2020-08-17 20:24 | Admission Physical ---
Datetime Report Generated by CPN: 08/17/2020 20:24 CURRENT ADMISSION Chief Complaint: Scheduled Induction of Labor Chief Complaint Other: For IOL at 40.2 wks EGA. GOod FM, No LOF or VB Indication for Induction: Postterm Admit Impression : Postterm, Intrauterine Admit Plan: Admit to Unit; Initiate Labor Induction Protocol ALLERGIES Medication Allergies: Yes Medication Allergies: amoxicillin/Pruritis (07/12/2020) Latex: No Latex Allergies Food Allergies: None Environmental Allergies: None OBSTETRICAL HISTORY EDC: 08/15/2020 00:00 : 1 Para: 0 Term: 0 : 0 SAB: 0 IAB: 0 Ectopic: 0 Livin Cesareans: 0 VBACs: 0 Gestational Diabetes: No Rh Sensitization: No Incompetent Cervix: No MAHTIEU: No Infertility: No ART Treatment: No Uterine Anomaly: No IUGR: No Hx Previous C/S: No Macrosomia: No Hx Loss/Stillborn: No PIH: Yes Hx : No Placenta Previa/Abruption: No Depression/PP Depression: No PTL/PROM: No Post Hemorrhage: No Current Procedures: Ultrasound; NST Obstetrical History Comments: G1- Current, increased blood pressure at beginning of SEE RECORDS Alcohol: No Marijuana : No Cocaine: No Other Illicit Drugs: No Cigarettes: Never Smoker. [id number] MEDICAL HISTORY Diabetes: No Blood Transfusion: No Pulmonary Disease (Asthma, TB): No Breast Disease: No Hypertension: Unknown Government Relations Director Surgery: No Heart Disease: No Hosp/Surgery: No Autoimmune Disorder: No Anesthetic Complications: No Kidney Disease: No Abnormal Pap Smear: No Neuro/Epilepsy: No Psychiatric Disorders: No Other Medical Diseases: No Hepatitis/Liver Disease: No Significant Family History: No Varicosities/Phlebitis: No Trauma/Violence : No Thyroid Dysfunction: No Medical History Comments: Possible HTN at beginning of . INFECTIOUS HISTORY Gonorrhea: No Genital Herpes: No Chlamydia: No Tuberculosis: No Syphilis: No Hepatitis: No HIV/AIDS Exposure: No Rash or Viral Illness: No HPV: No PHYSICAL EXAM General: Normal HEENT: Normal Neurologic: Normal Thyroid: Normal Heart: Normal Lungs: Normal Breast: Normal Back: Normal Abdomen: Normal Genitourinary Exam: Normal Extremities: Normal DTRs: Normal Pelvic Type: Adequate Vital Signs: Reviewed VAGINAL EXAM Dilatation: 0 Effacement: 0 Station: -3 Contraction Comments: Irregular contractions MEMBRANES Membranes: Intact FETUS A EGA: 40.2 Monitoring: External US FHR- Baseline: 125 Variability: Moderate 6-25bpm Accelerations: 15X15 Decelerations: None FHR Category: Category I Presentation: Vertex Admit Comment: G1 at 40.2 wks EGA for IOL d/t post dates -Admit to LDR -NPO, except ice chips and popcycles. IVFs: LR at 125 cc/hr after 1 liter bolus -GBS positive, plan PCN -CEFM and toco -Cervidil 10mg at 1830 PV -ANticipate PLANS FOR LABOR AND DELIVERY Labor and Delivery: None Pain Management: Epidural Feeding Preference: Both Benefit of Breast Feed Discussed: Yes Circumcision: N/A INFORMED CONSENT Informed Consent Obtained: Vaginal Delivery; Induction of Labor; Vacuum/Forceps Assist; Risks, Benefits and Alternatives Discussed Signature: with User ID: Stephanie : with User ID: Stephanie
[2020-08-18] MEDS ORDERED: PROMETHAZINE HCL INJ 25 MG/1 ML VIAL ONE (03:33)
[2020-08-18] MEDS ORDERED: NALBUPHINE HCL INJ 10 MG/1 ML AMPULE ONE (03:33)
[2020-08-18] MEDS ORDERED: PROMETHAZINE HCL INJ 25 MG/1 ML VIAL IV ONE (03:37)
[2020-08-18] MEDS ORDERED: NALBUPHINE HCL INJ 10 MG/1 ML AMPULE INJ ONE (03:37)
[2020-08-18] MEDS ORDERED: OXYTOCIN 10 UNIT/ML VIAL ONE (06:07)
[2020-08-18] MEDS ORDERED: MISOPROSTOL 0.2 MG TABLET ONE (06:07)
[2020-08-18] MEDS ORDERED: OXYTOCIN/0.9 % SODIUM CHLORIDE 30 UNIT/500 ML RTUINJ ONE (06:07)
[2020-08-18] MEDS ORDERED: LIDOCAINE 1% INJ-PF (10 MG/ML) 30 ML SDV ONE (06:07)
[2020-08-18] MEDS ORDERED: ACETAMINOPHEN 650 MG SUPP.RECT PR PRN (06:51)
[2020-08-18] MEDS ORDERED: DIPHENHYDRAMINE HCL 25 MG CAPSULE PO PRN (06:51)
[2020-08-18] MEDS ORDERED: PSEUDOEPHEDRINE HCL 30 MG TABLET PO PRN (06:51)
[2020-08-18] MEDS ORDERED: BENZOCAINE/MENTHOL AEROSOL SPRAY 56 ML TOP PRN (06:51)
[2020-08-18] MEDS ORDERED: MEASLES,MUMPS&RUBELLA VACC/PF 0.5 ML VIAL SUBCUT PRN (06:51)
[2020-08-18] MEDS ORDERED: PROMETHAZINE HCL 25 MG SUPP.RECT PR PRN (06:51)
[2020-08-18] MEDS ORDERED: ACETAMINOPHEN WITH CODEINE #3 TABLET PO PRN ×2 (06:51)
[2020-08-18] MEDS ORDERED: DIPH/PERTUSS(ACELL)/TETANUS VAC/PF 0.5 ML SYR (>=10YO) IM PRN (06:51)
[2020-08-18] MEDS ORDERED: ACETAMINOPHEN 325 MG TABLET PO PRN (06:51)
[2020-08-18] MEDS ORDERED: NA PHOS,M-B/NA PHOS,DI-BA (ADULT) 133 ML ENEMA PR PRN (06:51)
[2020-08-18] MEDS ORDERED: DIBUCAINE 1% OINTMENT 28 GM TP PRN (06:51)
[2020-08-18] MEDS ORDERED: OXYTOCIN/0.9 % SODIUM CHLORIDE 30 UNIT/500 ML RTUINJ IV PRN (06:51)
[2020-08-18] MEDS ORDERED: PROMETHAZINE HCL INJ 25 MG/1 ML VIAL IV PRN (06:51)
[2020-08-18] MEDS ORDERED: ZOLPIDEM TARTRATE 5 MG TABLET PO PRN (06:51)
[2020-08-18] MEDS ORDERED: MAGNESIUM HYDROXIDE SUSP 30 ML UDCUP PO PRN (06:51)
[2020-08-18] MEDS ORDERED: PROMETHAZINE HCL 25 MG TABLET PO PRN (06:51)
[2020-08-18] MEDS ORDERED: GLYCERIN/WITCH HAZEL LEAF 1 EACH MED..WIPE TP PRN (06:51)
--- NOTE | 2020-08-18 07:17 | Delivery Summary ---
Del Sum A-C Datetime Report Generated by CPN: 08/18/2020 07:16 DELIVERY PERSONNEL DELIVERY PERSONNEL: [id number] Delivery Doctor:: Cherelle Mitchell MD Labor and Delivery Nurse:: MAL Marquez Labor and Delivery Nurse:: Yanci Ta RN Nursery Nurse:: Yanci Ta RN Batch Mixer Operator/FAX MACHINE OPERATOR: Cailin Aguilar, ST MATERNAL INFORMATION Delivery Anesthesia: None; Local Medications During Delivery: local for repair Medications After Delivery: Pitocin 30 Units in 500ml NS/D5W Estimated Blood Loss (ml): 150 Maternal Complications: None LABOR SUMMARY EDC: 08/15/2020 00:00 No. Babies in Womb: 1 Attempted: No Labor Anesthesia: IV Sedation LABOR INFORMATION Reason for Induction: Post Dates Onset of Labor: 08/18/2020 04:00 Complete Dilatation: 08/18/2020 06:10 Cervical Ripening Agents: Cervidil Oxytocin: N/A Group B Beta Strep: positive Antibiotics # of Doses: 0 Steroids Given: None Reason Steroids Not Administered: Not Applicable MEMBRANES Membranes Rupture Method: Spontaneous Rupture of Membranes: 08/18/2020 06:10 Length of Rupture (hr): 0.00 Amniotic Fluid Color: Clear Amniotic Fluid Amount: Scant Amniotic Fluid Odor: None STAGES OF LABOR Stage 1 hr: 2 Stage 1 min: 10 Stage 2 hr: 0 Stage 2 min: 0 Stage 3 hr: 0 Stage 3 min: 5 Total Time in Labor hr: 2 Total Time in Labor min: 15 VAGINAL DELIVERY Episiotomy: None Laceration #1: Perineal Laceration Extension #1: Second Degree Laceration Repair: Not Applicable Sponge Count Correct: N/A Sharps Count Correct: N/A CSECTION DELIVERY Primary Indication: N/A CSection Incision: N/A BABY A INFORMATION Delivery Date/Time: 08/18/2020 06:10 Method of Delivery: Vaginal Nurse Controlled Delivery: No Born in Route : No : N/A Forceps: N/A Vacuum Extraction: N/A Shoulder Dystocia : No PRESENTATION/POSITION BABY A Presentation: Cephalic Cephalic Presentation: Vertex Vertex Position: Left Occipital Anterior Breech Presentation: N/A PLACENTA INFORMATION BABY A Placenta Delivery Time : 08/18/2020 06:15 Placenta Method of Delivery: Spontaneous Placenta Status: Delivered SCORES BABY A Heart Rate 1 min: >100 bpm Resp Effort 1 min: Good Cry Reflex Irritability 1 min: Cough or Sneeze or Pulls Away Muscle Tone 1 min: Active Motion Color 1 min: Blue/Pale Resuscitation Effort 1 min: Tactile Stimulation SCORE 1 MIN: 8 Heart Rate 5 min: >100 bpm Resp Effort 5 min: Good Cry Reflex Irritability 5 min: Cough or Sneeze or Pulls Away Muscle Tone 5 min: Active Motion Color 5 min: Body [place], Extremities Blue Resuscitation Effort 5 min: Tactile Stimulation SCORE 5 MIN: 9 INFANT INFORMATION BABY A Gestational Age at Delivery: 40.3 Gestational Status: Full Term- 39- 40.6 Weeks Outcome : Liveborn Infant Condition : Stable Sex: Female IDENTIFICATION BABY A Verification Date/Time: 08/18/2020 06:22 ID Band Number: [id number] Mother's Name Verified: Yes Infant RN Verifying Infant: Mitch Castro RN Additional Verifying Personnel: Narinder Watt RN WEIGHT/LENGTH BABY A Birthweight (gm): 3580 Weight (lb): 7 Infant Weight (oz): 14 Length (in): 20.75 Length (cm): 52.71 CORD INFORMATION BABY A No. Cord Vessels: 3 Nuchal Cord : N/A Cord Blood Taken: Yes-For Storage (Mom's Blood type +) Infant Suction: None ASSESSMENT BABY A Complications: None Physical Findings at Delivery: Within Normal Limits Infant Respirations: Appears Normal Skin to Skin: Yes Fiction And Nonfiction Prose Writer/ALS Called : No Infant Care By: Neil Guo RN Transferred To: Remains with Mother BABY B INFORMATION : N/A
--- NOTE | 2020-08-18 07:17 | Birth Certificate Data ---
Cert Data Datetime Report Generated by CPN: 08/18/2020 07:16 CERTIFICATE DATA 47a. Care: Yes (03/29/2020 13:33:Dominique Rosa RN) 47b. Date of First Visit: 01/15/2020 00:00 (03/29/2020 13:33:Dominique Rosa RN) 47c. Date of Last Visit: 08/15/2020 00:00 (03/29/2020 13:33:Dominique Rosa RN) 47d. Number of Visits: 17 (03/29/2020 13:33:Dominique Rosa RN) 48a. Number of Prev Live Births: 0 (03/29/2020 13:33:Dominique Rosa RN) 48b. Now Livin (03/29/2020 13:33:Flor Spence RN) 48c. Live Births Now : 0 (03/29/2020 13:33:QS system process) 48e. Losses: 0 (03/29/2020 13:33:Dominique Venita Rosa, RN) RISK FACTORS IN THIS 49a. Diabetes: No (03/29/2020 13:33:Mode Simon RN) 49b. Hypertension: Unknown (03/29/2020 13:33:Mode Simon RN) 49c. Previous Births: 0 (03/29/2020 13:33:Dominique Rosa RN) 49d. Stillborns: No (03/29/2020 13:33:Mode Simon RN) 49d. IUGR: No (03/29/2020 13:33:Mode Simon RN) 49e. Infertility Treatment: No (03/29/2020 13:33:Mode Simon RN) 49f. Previous Cesareans: 0 (03/29/2020 13:33:Dominique Rosa RN) Mother's Height 50b. Height Inches: 63 (08/17/2020 18:31:QS system process) Mother's Weight 51a. Pre- Weight (lbs): 185 (03/29/2020 13:33:Dominique Rosa RN) 51b. Weight at Delivery (lbs): 213 (08/17/2020 18:31:QS system process) 52. Dt Last Normal Menses Began: 11/09/2019 00:00 (03/29/2020 13:33:Nimisha Alvarez RN) Infections Present/Treated 53a. Gonorrhea: No (03/29/2020 13:33:Mode Simon RN) Results this Hospital Visit : Negative (03/29/2020 13:33:Yanci Ta RN) 53b. Syphilis: No (03/29/2020 13:33:Mode Simon RN) 53c. Chlamydia: No (03/29/2020 13:33:Mode Simon, RN) Results this Hospital Visit: Negative (03/29/2020 13:33:Yanci Ta RN) 53d. Hepatitis B: No (03/29/2020 13:33:Mode Simon RN) Results this Hospital Visit: Negative (03/29/2020 13:33:Mode Simon RN) 53h. Mother Tested for HBsAG: Yes (03/29/2020 13:33:Dominique Rosa RN) 53i. Date Tested: 01/15/2020 00:00 (03/29/2020 13:33:Dominique Rosa RN) 53j. Test Result: Negative (03/29/2020 13:33:Mode Simon RN) Obstetric Procedures 54a, b, c. Obstetric Procedures: Ultrasound; NST (03/29/2020 13:33:Mode Simon RN) Cigarette Smoking Cigarette Smoking: Never Smoker. [id number] (03/29/2020 13:33:Mode Simon RN) 55a. 3 Months Before Preg - Ci (03/29/2020 13:33:Mode Simon RN) 55a. Packs: 0 (03/29/2020 13:33:Mode Simon RN) 55b. 1st Trimester of Preg- Ci (03/29/2020 13:33:Mode Simon RN) 55b. Packs: 0 (03/29/2020 13:33:Mode Simon RN) 55c. 2nd Trimester of Preg- Ci (03/29/2020 13:33:Mode Simon RN) 55c. Packs: 0 (03/29/2020 13:33:Mode Simon RN) 55d. 3rd Trimester of Preg- Ci (03/29/2020 13:33:Mode Simon RN) 55d. Packs: 0 (03/29/2020 13:33:Mode Simon RN) Onset of Labor 56a. PROM >12 Hrs: 0.00 (08/18/2020 06:10:QS system process) 56b. Precipitous Labor <3 Hrs: 2 (03/29/2020 13:33:QS system process) 56c. Prolonged Labor > 20 Hrs: 2 (03/29/2020 13:33:QS system process) 57a. Induction of Labor: N/A (03/29/2020 13:33:Lisseth Castro RN) 57a. Induction of Labor: Cervidil (08/17/2020 18:26:Dominique Rosa RN) 57c. Non-Vertex Presentation A: Vertex (03/29/2020 13:33:Lisseth Castro RN) 57d. Steroids - Lung Mat: None (03/29/2020 13:33:Lisseth Castro RN) 57d. Steroids - Lung Mat: Not Applicable (03/29/2020 13:33:Lisseth Castro RN) 57f. Mat [place] or Temp >100.4: 98.0 (03/29/2020 13:33:Lisseth Castro RN) 57g. Moderate/Heavy Meconium: Clear (08/18/2020 06:10:MAL Marquez) 57h. Intolerance of Labor: N/A (03/29/2020 13:33:Lisseth Castro RN) 57i. Epidural/Spinal Anesthesia: IV Sedation (03/29/2020 13:33:Lisseth Castro RN) Method of Delivery 58a. Forceps - Unsuccessful A: N/A (03/29/2020 13:33:Lissteh Castro RN) 58b. Vacuum - Unsuccessful A: N/A (03/29/2020 13:33:Lisseth Castro RN) 58c. Presentation at 58c. Presentation at - A : Vertex (03/29/2020 13:33:Lisseth Castro RN) 58c. Presentation at - A : N/A (03/29/2020 13:33:Lisseth Castro RN) 58c. Presentation at - A : Cephalic (08/18/2020 03:00:Nayely Gonzales [facility]) Final Route and Method of Del 58d. Baby A Route/Delivery: Vaginal (03/29/2020 13:33:Lisseth Castro RN) 58e. Trial of Labor Attempted: No (03/29/2020 13:33:Lisseth Castro RN) 58e. Trial of Labor Attempted A: N/A (03/29/2020 13:33:Lisseth Castro RN) 58e. Trial of Labor Attempted B: N/A (03/29/2020 13:33:Lisseth Castro RN) Maternal Morbidity 59b. 3rd or 4th Degree Lacs: Perineal (03/29/2020 13:33:Lisseth Castro RN) Birthweight Baby A: 3580 (03/29/2020 13:33:Shiloh Brady RN) 60a. Pounds : 7 (03/29/2020 13:33:QS system process) 60b. Ounces: 14 (03/29/2020 13:33:QS system process) 61. GA at Delivery Baby A: 40.3 (03/29/2020 13:33:Lisseth Castro RN) : Full Term- 39- 40.6 Weeks (03/29/2020 13:33:QS system process) 62a. 5 Minute Baby A: 9 (03/29/2020 13:33:QS system process)
[2020-08-18] MEDS ORDERED: IBUPROFEN 800 MG TABLET ONE ×2 (07:31→07:37)
[2020-08-18] MEDS: IBUPROFEN 800 MG TABLET PO SCH ×3 (07:34→23:09)
[2020-08-18] MEDS: DOCUSATE SODIUM 100 MG CAPSULE PO SCH ×2 (14:19→17:51)
[2020-08-18] MEDS: PRENATAL VITAMIN W DHA CAPSULE PO SCH (14:19)
[2020-08-18] MEDS: FAMOTIDINE 20 MG TABLET PO SCH ×2 (14:21→23:09)
[2020-08-18] MEDS: SENNOSIDES/DOCUSATE 8.6-50 MG 1 EACH TABLET PO SCH (14:21)
[2020-08-18] MEDS: FERROUS SULFATE 325 MG TABLET PO SCH ×2 (14:21→17:51)
[2020-08-19] MEDS: IBUPROFEN 800 MG TABLET PO SCH ×3 (05:43→21:08)
[2020-08-19 06:46] LABS: HEMATOCRIT 23.5 % (36.0-47.0); MEAN CORPUSCULAR HEMOGLOBIN 26.2 pg (27.0-33.4); MEAN CORPUSCULAR HGB CONC 33.2 g/dL (32.0-36.0); MEAN CORPUSCULAR VOLUME 79 fl (80-97); PLATELET COUNT 170 10^3/uL (150-450); RED BLOOD COUNT 2.97 10^6/uL (3.72-5.28); RED CELL DISTRIBUTION WIDTH 16.6 % (11.5-14.0); WHITE BLOOD COUNT 9.6 10^3/uL (4.0-10.5)
[2020-08-19 07:06] LABS: HEMOGLOBIN 7.8 g/dL (12.0-15.5)
[2020-08-19] MEDS: PRENATAL VITAMIN W DHA CAPSULE PO SCH (10:38)
[2020-08-19] MEDS: FERROUS SULFATE 325 MG TABLET PO SCH ×2 (10:38→18:43)
[2020-08-19] MEDS: DOCUSATE SODIUM 100 MG CAPSULE PO SCH ×2 (10:38→18:43)
[2020-08-19] MEDS: SENNOSIDES/DOCUSATE 8.6-50 MG 1 EACH TABLET PO SCH (10:38)
[2020-08-19] MEDS: FAMOTIDINE 20 MG TABLET PO SCH ×2 (10:39→21:10)
--- NOTE | 2020-08-19 11:00 | PDOC PROGRESS REPORT ---
Subjective-OB Progress Note for:: 08/19/20 - PP Day #1, doing well, UOB, voiding, denies dizziness, SOB, or Chest tightening w/ ambulation. PLan to give IV iron discussed. A+. Rubella Immune, bottlefeeding Physical Exam (OB) Vital Signs: Temp Pulse Resp BP Pulse Ox 98.1 F 88 20 103/46 L 100 08/19/20 09:07 08/19/20 09:07 08/19/20 09:07 08/19/20 09:07 08/19/20 09:07 Intake & Output 08/18/20 08/19/20 08/20/20 06:59 06:59 06:59 Intake Total 850 Balance 850 Weight 96.6 kg - General General Appearance: Appears well, Alert - PIH/Pre-Eclampsia Clonus: Negative Headache: Absent Epigastric Pain: No Visual Changes: No - Maternal Morbidity 59. Maternal Morbidity (serious complications experinced by the mother associated with labor and delivery: None of the above - Lochia Lochia Amount: Small 10-25 ml Lochia Color: Rubra/Red - Abdomen Description: Soft, Round Hernia Present: No Fundal Description: Firm Fundal Height: u/u - u/2 - Respiratory Respiratory Status: No respiratory distress - Cardiovascular Rhythm: Regular Heart Sounds: Normal auscultation - Abdominal Inspection: Normal Distension: No distension Tenderness: Nontender - Genitourinary Genitourinary Note: voiding - Extremities Upper extremity: Normal inspection Lower extremities: Normal inspection - Neurological Cognition: Normal Orientation: AAOx4 - Psychological Associated symptoms: Normal affect, Normal mood Objective-Diagnostic Laboratory: 08/19/20 06:02 08/19/20 06:02 WBC 9.6 RBC 2.97 L Hgb 7.8 L Hct 23.5 L MCV 79 L MCH 26.2 L MCHC 33.2 RDW 16.6 H Plt Count 170 Assessment and Plan(PN) - Assessment and Plan (1) Acute blood loss anemia Is this a current diagnosis for this admission?: Yes (2) Normal vaginal delivery Is this a current diagnosis for this admission?: Yes (3) Obstetrical laceration Is this a current diagnosis for this admission?: Yes Plan:: IV iron infusion today, get out of bed slowly, Routine PP orders - Time Spent with Patient Time with patient: Less than 15 minutes Medications reviewed and adjusted accordingly: Yes - Disposition Anticipated Discharge Disposition: Home, Self Care Anticipated Discharge Timeframe: within 48 hours
[2020-08-19] MEDS ORDERED: IRON SUCROSE COMPLEX INJ/PF 100 MG/5 ML SDV IV ONE (11:30)
[2020-08-20] MEDS: IBUPROFEN 800 MG TABLET PO SCH (05:44)
[2020-08-20] MEDS: SENNOSIDES/DOCUSATE 8.6-50 MG 1 EACH TABLET PO SCH (09:46)
[2020-08-20] MEDS: DOCUSATE SODIUM 100 MG CAPSULE PO SCH (09:46)
[2020-08-20] MEDS: FAMOTIDINE 20 MG TABLET PO SCH (09:46)
[2020-08-20] MEDS: FERROUS SULFATE 325 MG TABLET PO SCH (09:46)
[2020-08-20] MEDS: PRENATAL VITAMIN W DHA CAPSULE PO SCH (09:46)
--- NOTE | 2020-08-20 10:10 | PDOC DISCHARGE SUMMARY ---
Impression - Admit/DC Date/PCP Admission Date/Primary Care Provider: 08/17/20 17:45 NELLY ZHOU MD Discharge Date: 08/20/20 - PP day #2, doing well, no complaints, A+, rubella immune - Discharge Diagnosis (1) Acute blood loss anemia Is this a current diagnosis for this admission?: Yes (2) Normal vaginal delivery Is this a current diagnosis for this admission?: Yes (3) Obstetrical laceration Is this a current diagnosis for this admission?: Yes - Additional Information Resuscitation Status: Full Code Discharge Diet: As Tolerated, Regular Discharge Activity: Activity As Tolerated, No Lifting Over 10 Pounds, Pelvic Rest Referrals: NELLY ZHOU MD [Primary Care Provider] - Prescriptions: Ferrous Sulfate [Feosol 325 mg Tablet] 325 mg PO BID #60 tablet Ibuprofen [Motrin 800 mg Tablet] 800 mg PO Q8 #60 tablet Home Medications: Pnv No.95/Ferrous Fum/Folic AC [ Caplet] 1 tab PO DAILY 04/07/20 Ferrous Sulfate [Feosol 325 mg Tablet] 325 mg PO BID #60 tablet 08/20/20 Ibuprofen [Motrin 800 mg Tablet] 800 mg PO Q8 #60 tablet 08/20/20 HPI Reason(s) for Admission: Onset of Labor Procedures: Ultrasound Intrapartum Procedure(s): Spontaneous Vaginal Delivery Complication(s): Laceration-Perineal Laceration-Degree: 2nd Hospital Course 59. Maternal Morbidity (serious complications experinced by the mother associated with labor and delivery: None of the above Results Laboratory Results: WBC 9.6 10^3/uL (4.0-10.5) 08/19/20 06:02 RBC 2.97 10^6/uL (3.72-5.28) L 08/19/20 06:02 Hgb 7.8 g/dL (12.0-15.5) L 08/19/20 06:02 Hct 23.5 % (36.0-47.0) L 08/19/20 06:02 MCV 79 fl (80-97) L 08/19/20 06:02 MCH 26.2 pg (27.0-33.4) L 08/19/20 06:02 MCHC 33.2 g/dL (32.0-36.0) 08/19/20 06:02 RDW 16.6 % (11.5-14.0) H 08/19/20 06:02 Plt Count 170 10^3/uL (150-450) 08/19/20 06:02 Urine Color IJEOMA 08/17/20 18:01 Urine Appearance CLOUDY 08/17/20 18:01 Urine pH 6.0 (5.0-9.0) 08/17/20 18:01 Ur Specific Lawrence 1.026 08/17/20 18:01 Urine Protein 100 mg/dL (NEGATIVE) H 08/17/20 18:01 Urine Glucose (UA) NEGATIVE mg/dL (NEGATIVE) 08/17/20 18:01 Urine Ketones NEGATIVE mg/dL (NEGATIVE) 08/17/20 18:01 Urine Blood NEGATIVE (NEGATIVE) 08/17/20 18:01 Urine Nitrite NEGATIVE (NEGATIVE) 08/17/20 18:01 Urine Bilirubin NEGATIVE (NEGATIVE) 08/17/20 18:01 Urine Urobilinogen 4.0 mg/dL (<2.0) H 08/17/20 18:01 Ur Leukocyte Esterase MODERATE (NEGATIVE) H 08/17/20 18:01 Urine WBC (Auto) 48 /HPF 08/17/20 18:01 Urine RBC (Auto) 19 /HPF 08/17/20 18:01 Urine Bacteria (Auto) 3+ /HPF 08/17/20 18:01 Squamous Epi Cells Auto 12 /HPF 08/17/20 18:01 Urine Mucus (Auto) MANY /LPF 08/17/20 18:01 Urine Ascorbic Acid NEGATIVE (NEGATIVE) 08/17/20 18:01 Urine Opiates Screen NEGATIVE 08/17/20 18:01 Urine Methadone Screen NEGATIVE 08/17/20 18:01 Ur Barbiturates Screen NEGATIVE 08/17/20 18:01 Ur Phencyclidine Scrn NEGATIVE 08/17/20 18:01 Ur Amphetamines Screen NEGATIVE 08/17/20 18:01 U Benzodiazepines Scrn NEGATIVE 08/17/20 18:01 Urine Cocaine Screen NEGATIVE 08/17/20 18:01 U Marijuana (THC) Screen NEGATIVE 08/17/20 18:01 RPR NONREACTIVE (NONREACTIVE) 08/17/20 18:57 Blood Type A POSITIVE 08/17/20 18:57 Antibody Screen NEGATIVE 08/17/20 18:57 Plan Plan of Treatment: d/c home, f/up with [facility] in 4 wks, eat iron rich foods Time Spent: Less than 30 Minutes
[2020-08-20 11:19] VITALS: BP 103/46
== END 2020-08-20 12:35 | disposition home or self-care (01) | DRG 806 ==
LOC: LR 17:45 → 2S 08-18 11:40
PROVIDERS: ADMIT Obstetrics & Gynecology; ATTEND Obstetrics & Gynecology
PROC: 10E0XZZ Delivery of Products of Conception, External Approach (ICD-10-PCS; principal; 2020-08-18)
PROC: 0KQM0ZZ Repair Perineum Muscle, Open Approach (ICD-10-PCS; 2020-08-18)
DX: O48.0 Post-term pregnancy (principal); D62 Acute posthemorrhagic anemia; Z37.0 Single live birth; O99.824 Streptococcus B carrier state complicating childbirth; O16.4 Unspecified maternal hypertension, complicating childbirth; O70.1 Second degree perineal laceration during delivery; O99.02 Anemia complicating childbirth; Z3A.40 40 weeks gestation of pregnancy
CPT/HCPCS: 36415; 80307; 81001; 85027; 86592; 86850; 86900; 86901; J2300; J2550; J2590; J3490

== ENCOUNTER 2020-08-23 09:35 | Emergency (ER) | payer MEDICAID ==
--- NOTE | 2020-08-23 10:39 | ER Document Report ---
ED Medical Screen (RME) - General Stated Complaint: BLOOD PRESSURE PROBLEM Time Seen by Provider: 08/23/20 10:26 Primary Care Provider: NELLY ZHOU MD [Primary Care Provider] - Follow up as needed TRAVEL OUTSIDE OF THE [place] IN LAST 30 DAYS: No - HPI Notes: 08/23/20 10:36 19-year-old female G1, P1 who is 6 days presents to the emergency room for complaints of a worsening headache that is become progressively worse today as well as chest tightness which both symptoms started 4 days ago, getting progressively worse. Patient states that she called [facility] and they advised her to come to the emergency room. Patient reports she did have some preeclampsia while she was during this . Reports she did have a vaginal without any complications. Is not on any hypertensive medications. Patient reports that it is a sharp pain, with photophobia and reports the chest pain is worse when she lays flat, denies any radiation of chest pain. Patient states she does have a history of migraines and headaches in the past and this headache is different, reports its the "worst headache of my life" and she was crying this morning due to the pain. Typically she takes Tylenol with codeine but that has not helped her at all so she feels that this may be something more. Patient is bottlefeeding. Patient is A + blood type 08/23/20 10:38 I have greeted and performed a rapid initial assessment of this patient. A comprehensive ED assessment and evaluation of the patient, analysis of test results and completion of the medical decision making process will be conducted by additional ED providers. PHYSICAL EXAMINATION: GENERAL: Well-appearing, well-nourished and in no acute distress. HEAD: Atraumatic, normocephalic. EYES: Pupils equal round extraocular movements intact, conjunctiva are normal. NECK: Normal range of motion CV: s1, s2 regular LUNGS: No respiratory distress Musculoskeletal: Normal range of motion NEUROLOGICAL: Normal speech, normal gait. SKIN: Warm, Dry, normal turgor, no rashes or lesions noted. - Related Data Allergies/Adverse Reactions: amoxicillin Allergy (Unknown, Verified 07/12/20 15:26) Pruritis Past Medical History - Past Medical History Cardiac Medical History: Reports: Hx Hypertension - Not currently on any medications, patient states she was diagnosed years ag Pulmonary Medical History: Denies: Hx Asthma Renal/ Medical History: Denies: Hx Peritoneal Dialysis Psychiatric Medical History: Reports: Hx Attention Deficit Hyperactivity Disorder - ODD, Hx Bipolar Disorder Past Surgical History: Reports: Hx Gynecologic Surgery - -jul 2017 - Immunizations Immunizations up to date: Yes Hx Diphtheria, Pertussis, Tetanus Vaccination: No Physical Exam - Vital signs Vitals: Temp Pulse Resp BP Pulse Ox 98.6 F 72 16 150/85 H 100 08/23/20 09:38 08/23/20 09:38 08/23/20 09:38 08/23/20 09:38 08/23/20 09:38 Course - Vital Signs Vital signs: Temp Pulse Resp BP Pulse Ox 98.6 F 72 16 150/85 H 100 08/23/20 09:38 08/23/20 09:38 08/23/20 09:38 08/23/20 09:38 08/23/20 09:38 Doctor's Discharge - Discharge Referrals: NELLY ZHOU MD [Primary Care Provider] - Follow up as needed
[2020-08-23 10:51] LABS: ABSOLUTE EOSINOPHILS # (AUTO) 0.2 10^3/uL (0.0-0.6); ABSOLUTE LYMPHOCYTES (AUTO) 1.6 10^3/uL (0.5-4.7); ABSOLUTE MONOCYTES (AUTO) 0.6 10^3/uL (0.1-1.4); ABSOLUTE NEUT (AUTO) 6.8 10^3/uL (1.7-8.2); BASOPHILS % (AUTO) 0.1 % (0-2); EOSINOPHILS % (AUTO) 1.9 % (0-6); HEMATOCRIT 29.7 % (36.0-47.0); HEMOGLOBIN 9.7 g/dL (12.0-15.5); LYMPHOCYTES % (AUTO) 16.9 % (13-45); MEAN CORPUSCULAR HEMOGLOBIN 26.1 pg (27.0-33.4); MEAN CORPUSCULAR HGB CONC 32.8 g/dL (32.0-36.0); MEAN CORPUSCULAR VOLUME 80 fl (80-97); MONOCYTES % (AUTO) 6.8 % (3-13); PLATELET COUNT 248 10^3/uL (150-450); RED BLOOD COUNT 3.73 10^6/uL (3.72-5.28); RED CELL DISTRIBUTION WIDTH 17.5 % (11.5-14.0); SEGMENTED NEUTROPHILS % (AUTO) 74.3 % (42-78); TOTAL CELLS COUNTED % (AUTO) 100 %; WHITE BLOOD COUNT 9.2 10^3/uL (4.0-10.5)
[2020-08-23 10:56] LABS: INTERNATIONAL RATION (INR) 1.03; PROTHROMBIN TIME 13.7 SEC (11.4-15.4)
[2020-08-23 11:04] LABS: APPEARANCE,URINE SLIGHTLY-CLOUDY; BILIRUBIN,URINE NEGATIVE (NEGATIVE); COLOR,URINE YELLOW; GLUCOSE, URINE NEGATIVE (NEGATIVE); KETONES,URINE NEGATIVE (NEGATIVE); LEUKOCYTE ESTERASE,URINE LARGE (NEGATIVE); NITRITE,URINE NEGATIVE (NEGATIVE); PROTEIN,URINE 100 mg/dL (NEGATIVE); URINE SPECIFIC GRAVITY 1.033
[2020-08-23 11:12] LABS: ALBUMIN 3.5 g/dL (3.5-5.0); ALKALINE PHOSPHATASE 185 U/L (38-126); ANION GAP 11 (5-19); ASPARTATE AMINO TRANSFERASE 45 U/L (14-36); BILIRUBIN,DIRECT 0.2 mg/dL (0.0-0.4); BILIRUBIN,TOTAL 0.6 mg/dL (0.2-1.3); BLOOD UREA NITROGEN 10 mg/dL (7-20); CALCIUM 9.3 mg/dL (8.4-10.2); CARBON DIOXIDE 22 mmol/L (22-30); CHLORIDE 107 mmol/L (98-107); GLUCOSE 85 mg/dL (75-110); POTASSIUM 3.8 mmol/L (3.6-5.0); TOTAL PROTEIN 6.2 g/dL (6.3-8.2)
--- NOTE | 2020-08-23 11:22 | RADIOLOGY REPORT (SQ) ---
EXAM DESCRIPTION: CT HEAD WITHOUT IMAGES COMPLETED DATE/TIME: 08/23/2020 10:58 am REASON FOR STUDY: Severe POTTER, x6days ago COMPARISON: 08/22/2017. TECHNIQUE: Axial images acquired through the brain without intravenous contrast. Images reviewed wi th bone, brain and subdural windows. Additional sagittal and coronal reconstructions were generated. Images stored on PACS. All CT scanners at this facility use dose modulation, iterative reconstruction, and/or weight based d osing when appropriate to reduce radiation dose to as low as reasonably achievable (ALARA). [facility]: Dose Right [facility]: CareDose [facility]: Dose Right [facility]: Teradose 4D [facility]: Synesis RADIATION DOSE: CT Rad equipment meets quality standard of care and radiation dose reduction techniq ues were employed. CTDIvol: 53.2 mGy. DLP: 964 mGy-cm. mGy. LIMITATIONS: None. FINDINGS: VENTRICLES: Normal size and contour. CEREBRUM: No masses. No hemorrhage. No midline shift. No evidence for acute infarction. Normal gra y/white matter differentiation. No areas of low density in the white matter. CEREBELLUM: No masses. No hemorrhage. No alteration of density. No evidence for acute infarction. EXTRAAXIAL SPACES: No fluid collections. No masses. ORBITS AND GLOBE: No intra- or extraconal masses. Normal contour of globe without masses. CALVARIUM: No fracture. PARANASAL SINUSES: No fluid or mucosal thickening. SOFT TISSUES: No mass or hematoma. OTHER: No other significant finding. IMPRESSION: NORMAL BRAIN CT WITHOUT CONTRAST. EVIDENCE OF ACUTE STROKE: NO. COMMENT: Quality ID # [id number]: Final reports with documentation of one or more dose reduction techniques (e.g., Automated exposure control, adjustment of the mA and/or kV according to patient size, use of iterative reconstruction technique) TECHNICAL DOCUMENTATION: JOB ID: [id number] 2010 [employer]- All Rights Reserved Reading location - IP/workstation name: [email or web address]
--- NOTE | 2020-08-23 11:23 | RADIOLOGY REPORT (SQ) ---
EXAM DESCRIPTION: CHEST 2 VIEWS IMAGES COMPLETED DATE/TIME: 08/23/2020 11:09 am REASON FOR STUDY: chest tightness COMPARISON: 05/09/2020. EXAM PARAMETERS: NUMBER OF VIEWS: two views TECHNIQUE: Digital Frontal and Lateral radiographic views of the chest acquired. RADIATION DOSE: NA LIMITATIONS: none FINDINGS: LUNGS AND PLEURA: No opacities, masses or pneumothorax. No pleural effusion. MEDIASTINUM AND HILAR STRUCTURES: No masses or contour abnormalities. HEART AND VASCULAR STRUCTURES: Heart normal size. No evidence for failure. BONES: No acute findings. HARDWARE: None in the chest. OTHER: No other significant finding. IMPRESSION: NO ACUTE RADIOGRAPHIC FINDING IN THE CHEST. TECHNICAL DOCUMENTATION: JOB ID: [id number] 2010 [employer]- All Rights Reserved Reading location - IP/workstation name: [email or web address]
[2020-08-23 11:31] LABS: ERYTHROCYTE SEDIMENTATION RATE 57 mm/hr (0-20)
--- NOTE | 2020-08-23 11:47 | ER Document Report ---
ED Headache - General Chief Complaint: Headache >24 hrs old Stated Complaint: BLOOD PRESSURE PROBLEM Time Seen by Provider: 08/23/20 10:26 Primary Care Provider: NELLY ZHOU MD [ACTIVE STAFF] - Follow up as needed Mode of Arrival: Ambulatory Information source: Patient Notes: ED Medical Screen (Leslie zaragoza) - General Stated Complaint: BLOOD PRESSURE PROBLEM Time Seen by Provider: 08/23/20 10:26 Primary Care Provider: NELLY ZHOU MD [Primary Care Provider] - Follow up as needed TRAVEL OUTSIDE OF THE [place] IN LAST 30 DAYS: No - HPI Notes: 08/23/20 10:36 19-year-old female G1, P1 who is 6 days presents to the emergency room for complaints of a worsening headache that is become progressively worse today as well as chest tightness which both symptoms started 4 days ago, getting progressively worse. Patient states that she called [facility] and they advised her to come to the emergency room. Patient reports she did have some preeclampsia while she was during this . Reports she did have a vaginal without any complications. Is not on any hypertensive medications. Patient reports that it is a sharp pain, with photophobia and reports the chest pain is worse when she lays flat, denies any radiation of chest pain. Patient states she does have a history of migraines and headaches in the past and this headache is different, reports its the "worst headache of my life" and she was crying this morning due to the pain. Typically she takes Tylenol with codeine but that has not helped her at all so she feels that this may be something more. Patient is bottlefeeding. Patient is A + blood type 08/23/20 10:38 MY NOTES 19-year-old black female arrives with chief complaint of diffuse headache since she was discharged on Saturday. She reports Dorie was her caregiver during her delivery normal spontaneous vaginal delivery. Patient did have hypertension preeclampsia during this . Patient has right flank pain when she a ttempts to bottlefeed baby on her chest. She has no history of migraines. She denies any dysuria or lower abdominal pain. TRAVEL OUTSIDE OF THE [place] IN LAST 30 DAYS: No - HPI Patient complains to provider of: Headache Onset: Other - x 3 days Onset was: Gradual Timing: Still present Quality of pain: Achy Severity: Moderate Pain Level: 2 Associated symptoms: Lightheaded, Photophobia. denies: Chills, Confusion, Dizzy, Double/blurred vision, Fainting, Fever, Memory loss, Motion sickness, Motor/sensory loss to arm, Motor/sensory loss to leg, Nausea/vomiting, Neck pain, Speech problems, Stiff neck, Sweaty, Tingling/numb sensation, Trouble walking Exacerbated by: Light Similar symptoms previously: No Recently seen / treated by doctor: No - Related Data Allergies/Adverse Reactions: amoxicillin Allergy (Unknown, Verified 08/23/20 12:02) Pruritis Past Medical History - General Information source: Patient - Social History Smoking Status: Never Smoker Cigarette use (# per day): No Chew tobacco use (# tins/day): No Smoking Education Provided: No Frequency of alcohol use: None Drug Abuse: None Lives with: Family Family History: None, DM Patient has suicidal ideation: No Patient has homicidal ideation: No - Past Medical History Cardiac Medical History: Reports: Hx Hypertension - Not currently on any medications, patient states she was diagnosed years ag Pulmonary Medical History: Denies: Hx Asthma Renal/ Medical History: Denies: Hx Peritoneal Dialysis Psychiatric Medical History: Reports: Hx Attention Deficit Hyperactivity Disorder - ODD, Hx Bipolar Disorder Past Surgical History: Reports: Hx Gynecologic Surgery - -jul 2017 - Immunizations Immunizations up to date: Yes Hx Diphtheria, Pertussis, Tetanus Vaccination: No Review of Systems - Review of Systems Constitutional: See HPI, Weakness, Recent illness EENT: No symptoms reported Cardiovascular: No symptoms reported Respiratory: No symptoms reported Gastrointestinal: No symptoms reported Genitourinary: No symptoms reported Female Genitourinary: No symptoms reported Musculoskeletal: No symptoms reported Skin: No symptoms reported Hematologic/Lymphatic: No symptoms reported Neurological/Psychological: See HPI, Weakness, Headaches Physical Exam - Vital signs Vitals: Temp Pulse Resp BP Pulse Ox 98.6 F 72 16 150/85 H 100 08/23/20 09:38 08/23/20 09:38 08/23/20 09:38 08/23/20 09:38 08/23/20 09:38 Interpretation: Normal - General General appearance: Alert - HEENT Head: Normocephalic, Atraumatic Eyes: Normal Pupils: PERRL External canal: Normal Tympanic membrane: Normal Hearing loss: Left Sinus: Normal Nasal: Normal Mouth/Lips: Normal Mucous membranes: Normal Pharynx: Normal Neck: Normal - Respiratory Respiratory status: No respiratory distress Chest status: Nontender Breath sounds: Normal Chest palpation: Normal - Cardiovascular Rhythm: Regular Heart sounds: Normal auscultation Murmur: No - Abdominal Inspection: Normal Distension: No distension Bowel sounds: Normal Tenderness: Nontender Organomegaly: No organomegaly - Rectal Hemorrhoids: Other - deferred - Genitourinary Bimanuel exam: Other - deferred - Back Back: Normal, Nontender - Extremities General upper extremity: Normal inspection, Nontender, Normal color, Normal ROM, Normal temperature General lower extremity: Normal inspection, Nontender, Normal color, Normal ROM, Normal temperature, Normal weight bearing. No: Irene's sign - Neurological Neuro grossly intact: Yes Cognition: Normal Orientation: AAOx4 Pella Coma Scale Eye Opening: Spontaneous Anne Coma Scale Verbal: Oriented Anne Coma Scale Motor: Obeys Commands Pella Coma Scale Total: 15 Speech: Normal Motor strength normal: LUE, RUE, LLE, RLE Sensory: Normal - Psychological Associated symptoms: Normal affect, Normal mood - Skin Skin Temperature: Warm Skin Moisture: Dry Skin Color: Normal Course - Vital Signs Vital signs: Temp Pulse Resp BP Pulse Ox 98.6 F 72 22 H 150/85 H 96 08/23/20 11:45 08/23/20 09:38 08/23/20 12:36 08/23/20 09:38 08/23/20 13:08 - Laboratory Result Diagrams: 08/23/20 10:35 08/23/20 10:35 Laboratory results interpreted by me: 08/23/20 08/23/20 08/23/20 10:35 10:35 10:48 Hgb 9.7 L Hct 29.7 L MCH 26.1 L RDW 17.5 H ESR 57 H AST 45 H ALT 42 H Alkaline Phosphatase 185 H Total Protein 6.2 L Urine Protein 100 H Urine Blood LARGE H Urine Urobilinogen 2.0 H Ur Leukocyte Esterase LARGE H Critical Care Note - Critical Care Note Comments: I discussed this case with Dr. Hodge and he advises patient to go home after medications given. Patient's blood pressure 150/85. I instructed patient on labs and CT findings and advised her of Dr. Coronel advice. Patient reports she needs a work note because she works at [employer]. Discharge - Discharge Clinical Impression: Acute blood loss anemia, Normal vaginal delivery Cephalgia Qualifiers: Headache type: unspecified Headache chronicity pattern: acute headache Intractability: not intractable Qualified Code(s): R51.9 - Headache, unspecified UTI (urinary tract infection) Qualifiers: Urinary tract infection type: acute cystitis Hematuria presence: with hematuria Qualified Code(s): N30.01 - Acute cystitis with hematuria Condition: Stable Disposition: HOME, SELF-CARE Additional Instructions: Follow-up with women's health care or Dr. Hodge or Dorie return to ER as needed off work as directed. Take antibiotics as directed. Take headache medications as needed and do not drive or use dangerous machinery while taking headache medicines. Prescriptions: Levofloxacin [Levaquin 500 mg Tablet] 500 mg PO DAILY #7 tablet Cyproheptadine HCl [Periactin 4 Mg Tablet] 4 mg PO HSP PRN #20 tablet PRN Reason: Forms: Return to Work Referrals: NELLY ZHOU MD [ACTIVE STAFF] - Follow up as needed
[2020-08-23] MEDS ORDERED: FENTANYL CITRATE INJ/PF 100 MCG/2 ML AMPUL IV ONE (12:19)
[2020-08-23] MEDS ORDERED: ONDANSETRON HCL INJ/PF 4 MG/2 ML SDV IV ONE (12:20)
[2020-08-23] MEDS ORDERED: NORMAL SALINE 1000 ML 1,000 ML IV PRN (12:23)
[2020-08-23] MEDS ORDERED: LEVOFLOXACIN 750 MG/D5W RTU 750 MG/150 ML RTUPB IV ONE (12:30)
--- NOTE | 2020-08-23 13:17 | RADIOLOGY REPORT (SQ) ---
EXAM DESCRIPTION: CT ABD/PELVIS NO ORAL OR IV IMAGES COMPLETED DATE/TIME: 08/23/2020 1:05 pm REASON FOR STUDY: right flank pain COMPARISON: None. TECHNIQUE: CT scan of the abdomen and pelvis performed without intravenous or oral contrast. Images reviewed with lung, soft tissue, and bone windows. Reconstructed coronal and sagittal MPR images revi ewed. All images stored on PACS. All CT scanners at this facility use dose modulation, iterative reconstruction, and/or weight based d osing when appropriate to reduce radiation dose to as low as reasonably achievable (ALARA). [facility]: Dose Right [facility]: CareDose [facility]: Dose Right [facility]: Teradose 4D [facility]: SetuServ RADIATION DOSE: mGy. LIMITATIONS: None. FINDINGS: LOWER CHEST: No significant findings. No nodules or infiltrates. NON-CONTRASTED LIVER, SPLEEN, ADRENALS: Evaluation limited by lack of IV contrast. No identified sign ificant masses. PANCREAS: No masses. No peripancreatic inflammatory changes. GALLBLADDER: No identified stones by CT criteria. No inflammatory changes to suggest cholecystitis. RIGHT KIDNEY AND URETER: No suspicious masses. Assessment limited by lack of IV contrast. No signif icant calcifications. No hydronephrosis or hydroureter. LEFT KIDNEY AND URETER: No suspicious masses. Assessment limited by lack of IV contrast. No signifi cant calcifications. No hydronephrosis or hydroureter. AORTA AND RETROPERITONEUM: No aneurysm. No retroperitoneal masses or adenopathy. BOWEL AND PERITONEAL CAVITY: No obvious masses or inflammatory changes. No free fluid. APPENDIX: Normal. PELVIS, BLADDER, AND ABDOMINAL WALL:Non masslike expansion of the uterus suggests recently gravid sta te. Scant simple appearing free fluid is seen within the pelvis. BONES: No significant findings. OTHER: No other significant finding. IMPRESSION: No evidence of urolithiasis or obstructive uropathy. Non masslike expansion of the uter us suggests recently gravid state. Otherwise unremarkable CT appearance of the abdomen and pelvis. COMMENT: Quality ID # [id number]: Final reports with documentation of one or more dose reduction techniques (e.g., Automated exposure control, adjustment of the mA and/or kV according to patient size, use of iterative reconstruction technique) TECHNICAL DOCUMENTATION: JOB ID: [id number] 2010 [employer]- All Rights Reserved Reading location - IP/workstation name: [email or web address]
[2020-08-23 14:48] VITALS: BP 123/70
--- NOTE | 2020-08-23 17:36 | EKG REPORT ---
SEVERITY:- OTHERWISE NORMAL ECG - SINUS ARRHYTHMIA, RATE 43-61 : Confirmed by: Janay Chapa MD 23-Aug-2020 17:35:43
== END 2020-08-23 14:48 | disposition home or self-care (01) ==
LOC: ER 09:35
DX: O90.89 Other complications of the puerperium, not elsewhere classified (principal); R51.9 Headache, unspecified; H53.149 Visual discomfort, unspecified; R10.9 Unspecified abdominal pain; R07.89 Other chest pain; R42 Dizziness and giddiness; R53.1 Weakness; O86.22 Infection of bladder following delivery; O90.81 Anemia of the puerperium; D62 Acute posthemorrhagic anemia; O16.5 Unspecified maternal hypertension, complicating the puerperium; Z88.0 Allergy status to penicillin
CPT/HCPCS: 93005; 99285; 96375; 96365; 96366; 36415; 87086; 85025; 85652; 85610; 87088; 80053; 81001; 84484; 71046; 70450; 74176; 93010; J3010; J2405; J7030; J1956; 87186

== ENCOUNTER 2020-09-18 20:29 | Emergency (ER) | payer MEDICAID ==
--- NOTE | 2020-09-18 20:40 | ER Document Report ---
ED Medical Screen (RME) - General Chief Complaint: Nausea/Vomiting/Diarrhea Stated Complaint: NAUSEA,VOMITING,LOSS OF TASTE/SMELL Time Seen by Provider: 09/18/20 20:35 Mode of Arrival: Ambulatory Information source: Patient Notes: 20-year-old female presented to ED for headaches nausea no vomiting diarrhea no sense of smell or taste and nasal congestion no fever since Saturday. She states she is 1 month and has not had a menstrual period since her . She states she does not smoke drink or use any illicit drugs. She states she has no past medical history. Patient is alert oriented respirations regular nonlabored speaking in full sentences. She states she works from home. She states she has been around her best friend's mother who is positive for Covid. I have greeted and performed a rapid initial assessment of this patient. A comprehensive ED assessment and evaluation of the patient, analysis of test results and completion of medical decision making process will be conducted by an additional ED providers. TRAVEL OUTSIDE OF THE [place] IN LAST 30 DAYS: No - Related Data Allergies/Adverse Reactions: amoxicillin Allergy (Unknown, Verified 08/23/20 12:02) Pruritis Past Medical History - Past Medical History Cardiac Medical History: Reports: Hx Hypertension - Not currently on any medications, patient states she was diagnosed years ag Pulmonary Medical History: Denies: Hx Asthma Renal/ Medical History: Denies: Hx Peritoneal Dialysis Psychiatric Medical History: Reports: Hx Attention Deficit Hyperactivity Disorder - ODD, Hx Bipolar Disorder Past Surgical History: Reports: Hx Gynecologic Surgery - -jul 2017 - Immunizations Immunizations up to date: Yes Hx Diphtheria, Pertussis, Tetanus Vaccination: No
[2020-09-18 21:50] LABS: A TYPE INFLUENZA AG NEGATIVE (NEGATIVE); B INFLUENZA AG NEGATIVE (NEGATIVE)
[2020-09-18] MEDS ORDERED: ONDANSETRON ODT 4 MG TAB (6 TAB/ER DISP) PO PRN (22:50)
--- NOTE | 2020-09-18 22:50 | ER Document Report ---
ED GI/ - General Chief Complaint: Nausea Stated Complaint: NAUSEA,VOMITING,LOSS OF TASTE/SMELL Time Seen by Provider: 09/18/20 20:35 Primary Care Provider: NICOLE JIMENEZ [Primary Care Provider] - Follow up as needed Mode of Arrival: Ambulatory Information source: Patient Notes: Patient reports loss of taste and smell with nausea and vomiting. Reports contact with covid positive person 1 week ago. Patient has had symptoms x3 days. Patient denies fevers/chills/cough/congestion. TRAVEL OUTSIDE OF THE [place] IN LAST 30 DAYS: No - Related Data Allergies/Adverse Reactions: amoxicillin Allergy (Unknown, Verified 08/23/20 12:02) Pruritis Past Medical History - General Information source: Patient - Social History Smoking Status: Never Smoker Chew tobacco use (# tins/day): No Frequency of alcohol use: None Drug Abuse: None Family History: None, DM Patient has homicidal ideation: No - Past Medical History Cardiac Medical History: Reports: Hx Hypertension - Not currently on any medications, patient states she was diagnosed years ag Pulmonary Medical History: Denies: Hx Asthma Renal/ Medical History: Denies: Hx Peritoneal Dialysis Psychiatric Medical History: Reports: Hx Attention Deficit Hyperactivity Disorder - ODD, Hx Bipolar Disorder Past Surgical History: Reports: Hx Gynecologic Surgery - -jul 2017 - Immunizations Immunizations up to date: Yes Hx Diphtheria, Pertussis, Tetanus Vaccination: No Review of Systems - Review of Systems Constitutional: denies: Chills, Fever EENT: Other - loss of taste/smell Respiratory: Cough. denies: Short of breath Gastrointestinal: Nausea, Vomiting -: Yes All other systems reviewed and negative Physical Exam - Vital signs Vitals: Temp Pulse Resp BP Pulse Ox 98.6 F 90 16 132/79 H 100 09/18/20 20:38 09/18/20 20:38 09/18/20 20:38 09/18/20 20:38 09/18/20 20:38 Interpretation: Normal - General General appearance: Appears well, Alert - HEENT Head: Normocephalic, Atraumatic Eyes: Normal Pupils: PERRL - Respiratory Respiratory status: No respiratory distress Chest status: Nontender Breath sounds: Normal Chest palpation: Normal - Cardiovascular Rhythm: Regular Heart sounds: Normal auscultation Murmur: No - Abdominal Inspection: Normal Distension: No distension Bowel sounds: Normal Tenderness: Nontender Organomegaly: No organomegaly - Back Back: Normal, Nontender - Extremities General upper extremity: Normal inspection, Nontender, Normal color, Normal ROM, Normal temperature General lower extremity: Normal inspection, Nontender, Normal color, Normal ROM, Normal temperature, Normal weight bearing. No: Irene's sign - Neurological Neuro grossly intact: Yes Cognition: Normal Orientation: AAOx4 Anne Coma Scale Eye Opening: Spontaneous [place] Coma Scale Verbal: Oriented [place] Coma Scale Motor: Obeys Commands [place] Coma Scale Total: 15 Speech: Normal Motor strength normal: LUE, RUE, LLE, RLE Sensory: Normal - Psychological Associated symptoms: Normal affect, Normal mood - Skin Skin Temperature: Warm Skin Moisture: Dry Skin Color: Normal Course - Re-evaluation Re-evalutation: Patient appears well, nontoxic. No significant comorbidities. Vitals normal. COVID swab pending. D/C home. Patient agreeable to plan. - Vital Signs Vital signs: Temp Pulse Resp BP Pulse Ox 98.5 F 60 16 119/74 100 09/18/20 23:30 09/18/20 23:30 09/18/20 23:30 09/18/20 23:30 09/18/20 23:30 Discharge - Discharge Clinical Impression: Viral illness, Exposure to COVID-19 virus Condition: Stable Disposition: HOME, SELF-CARE Additional Instructions: If you were prescribed medications during today's visit please take them exactly as prescribed. Push fluids. Get plenty of rest. Tylenol or Motrin for fever and body aches. Good handwashing and stay away from others. COVID-19 test pending, self quarantine as per the advice of the health department. You should have COVID-19 test results within 2 to 3 days. Return to the emergency department with any new or worsening symptoms such as difficulty breathing, or any other worsening symptoms. Referrals: LOCALMD,NO [Primary Care Provider] - Follow up as needed
[2020-09-18 23:37] VITALS: BP 119/74
== END 2020-09-18 23:37 | disposition home or self-care (01) ==
LOC: ER 20:29
DX: U07.1 COVID-19 (principal); B34.9 Viral infection, unspecified; R11.2 Nausea with vomiting, unspecified; R19.7 Diarrhea, unspecified; Z88.0 Allergy status to penicillin
CPT/HCPCS: 99282; 87070; 87880; 87635; 87804; C9803